=== PATIENT | female | born 1975 | race Caucasian/White ===

== ENCOUNTER 2019-12-09 15:54 | Outpatient (CLI) | payer OTHER, SELFPAY ==
--- NOTE | 2019-12-09 16:11 | MR_ITS ---
WS: [id number] MRI CERVICAL SPINE HISTORY: RADICULOPATHY, CERVICAL REGION COMPARISON: None available. Normal lumbar alignment. Mild disc desiccation throughout the cervical spine. Most significant at C5- 6 and C6-7. Signal within the cervical cord is normal. Visualized posterior fossa is unremarkable. Craniocervical junction, C1 and C2 relationship, odontoid process and soft tissues are normal. C2-C3: Normal. C3-C4: Mild annular disc bulging and osteophytes. Mild encroachment upon the ventral cervical cord bu t no contact. C4-C5: Mild annular disc bulging and osteophytic ridging. No significant stenosis. C5-C6: Moderate diffuse annular disc bulging and osteophyte disease. There is a central disc protrusi on with annular fissure contacting the cord. Mild central stenosis. C6-C7: Diffuse annular disc bulging with a moderate LEFT paracentral disc protrusion. Disc protrusion contacts and displaces the LEFT lateral cervical cord. There is mild central and bilateral foraminal stenosis. C7-T1: Very shallow central disc protrusion. T2-3: Tiny central disc protrusion without cord contact. MR/MR cervical spin wo con* [id number] IMPRESSION: 1. Moderate size central disc protrusion with annular fissure at C5-6. Mild ce ntral stenosis. 2. Moderate LEFT paracentral disc protrusion at C6-7 with cord contact and mil d displacement of the LEFT lateral cervical cord. Mild central and bilateral fo raminal stenosis at the C6-7 level. 3. Remaining levels demonstrate mild spondylosis.
== END 2019-12-09 15:55 | disposition home or self-care (01) ==
PROVIDERS: PCP Nurse Practitioner Family; Visit Provider Physician Assistant
DX: M54.12 Radiculopathy, cervical region (principal); M50.222 Other cervical disc displacement at C5-C6 level; M48.02 Spinal stenosis, cervical region; M47.892 Other spondylosis, cervical region
CPT/HCPCS: 72141

== ENCOUNTER 2020-02-03 14:53 | Outpatient (CLI) | payer OTHER, SELFPAY ==
--- NOTE | 2020-02-03 | MR_ITS ---
WS: [id number] MRI LUMBAR SPINE NONCONTRAST HISTORY: RADICULOPATHY, RIGHT leg pain. COMPARISON: None available. TECHNIQUE: Sagittal and axial multisequence imaging is submitted. Mild increase in thoracic kyphosis. Mild degenerative disc disease and osteophytosis throughout the c ervical and thoracic spine. No cord compression. Focal disc protrusions causing mild central stenosis at C5-6 and C6-7 have been previously described. Normal lumbar alignment with no compression fractures or marrow edema. Mild degenerative disc disease at L4-5 and L5-S1. No marrow edema or acute fracture. Conus terminates normally at Conus tapers and terminates normally at L1. L1-L2: Mild annular disc bulging and facet arthritis. No stenosis. L2-L3: Mild annular disc bulging and facet arthritis. No stenosis. L3-L4: Mild annular disc bulging and facet arthropathy. Small amount of fluid in the facet joints and ligamentum flavum hypertrophy. Vertebral body osteophytes and disc disease causing mild bilateral fo raminal stenosis, LEFT greater than RIGHT. L4-L5: Mild annular disc bulging with a small RIGHT paracentral disc protrusion. There is very slight narrowing of the subarticular recess on the RIGHT with annular fissures in the disc protrusion. Mild bilateral foraminal stenosis. L5-S1: Diffuse annular disc bulging with a broad-based central protrusion in the RIGHT foramen. Disc is abutting the undersurface of the L5 nerve root. Additional disc protrusion extends into the LEFT f oramen and there is a small central disc protrusion. Nerve roots are clumped within the thecal sac. M ild to moderate bilateral foraminal stenosis, RIGHT greater than LEFT. Nabothian cysts. MR/MR lumbar spine wo con* [id number] IMPRESSION: 1. Mild to moderate bilateral foraminal stenosis at L5-S1. Due to combination of facet arthritis with disc protrusions. Small central disc protrusion with bi lateral foraminal broad-based protrusions. RIGHT foraminal disc protrusion abut ting the L5 nerve root. 2. Small RIGHT paracentral disc protrusion at L4-5 with annular fissures. Mild narrowing and encroachment into the RIGHT subarticular recess and mild bilater al foraminal stenosis. 3. Mild bilateral foraminal stenosis at L3-4, LEFT greater than RIGHT.
== END 2020-02-03 14:54 | disposition home or self-care (01) ==
LOC: RADSHAW 14:58
PROVIDERS: PCP Nurse Practitioner Family; Visit Provider Nurse Practitioner Adult Health
DX: M54.17 Radiculopathy, lumbosacral region (principal); M79.604 Pain in right leg; M48.07 Spinal stenosis, lumbosacral region; M51.26 Other intervertebral disc displacement, lumbar region; M48.061 Spinal stenosis, lumbar region without neurogenic claudication
CPT/HCPCS: 72148

== ENCOUNTER 2020-02-07 13:18 | Outpatient (CLI) | payer OTHER, SELFPAY ==
--- NOTE | 2020-02-07 13:39 | XR_ITS ---
WS: [id number] CERVICAL SPINE FLEXION EXTENSION TECHNIQUE: 3 views of the cervical spine: lateral neutral, flexion and extension views. CLINICAL INFORMATION: cervical pain COMPARISON: None. FINDINGS: Straightening of the normal cervical lordosis. Normal C1-C2 articulation. Normal soft tissues. No ins tability on flexion-extension. Posterior elements are normal. No other significant findings. XR/XR cervical spine fl/ex [id number] IMPRESSION: No instability on flexion-extension
== END 2020-02-07 13:19 | disposition home or self-care (01) ==
LOC: RADWPI 13:25
PROVIDERS: PCP Nurse Practitioner Family; Visit Provider Licensed Practical Nurse
DX: M54.2 Cervicalgia (principal)
CPT/HCPCS: 72040

== ENCOUNTER 2020-03-04 13:54 | Outpatient (CLI) | payer OTHER, SELFPAY ==
--- NOTE | 2020-03-04 14:45 | XR_ITS ---
WS: [id number] LATERAL CERVICAL SPINE: 3 view. Lateral radiographs are performed in upright neutral, flexion and extension to the patient's toleranc e. HISTORY: Neck pain COMPARISON: 02/07/2020 Posterior alignment is normal. With flexion and extension no instability. No fractures. XR/XR cervical spine fl/ex [id number] IMPRESSION: Normal cervical alignment with no instability.
--- NOTE | 2020-03-04 15:00 | XR_ITS ---
WS: [id number] LATERAL LUMBAR SPINE: 3 view. Lateral radiographs are performed in upright neutral, flexion and extension to the patient's toleranc e. HISTORY: Low back pain COMPARISON: None available. Slight increase in lumbar lordosis. 3.5 mm retrolisthesis of L5. With flexion and extension there is no instability. Moderate disc space narrowing at L5-S1. No fractures. No lumbar spine instability. XR/XR lumbar spine f/e only [id number] IMPRESSION: 1. Mild increase in the lumbar lordosis. 2. No lumbar spine instability. 3. Moderate degenerative disc disease at L5-S1.
--- NOTE | 2020-03-04 15:45 | CT_ITS ---
WS: [id number] CT CERVICAL SPINE HISTORY: Neck pain TECHNIQUE: Contiguous 2.5 mm axial imaging performed through the entire cervical spine. Sagittal and coronal reformats also performed. All CT scans at [facility] use at least one of these do se optimization techniques: automated exposure control; mA and/or kV adjustment per patient size (inc ludes targeted exams where dose is matched to clinical indication); or iterative reconstruction. DLP: 1514.19 mGycm COMPARISON: MRI C-spine 12/09/2019 Normal posterior alignment. Craniocervical junction is normal. No fractures or bone destruction. Late ral masses of C1 and C2 are intact. C2-C3: Tiny central disc protrusion. C3-C4: Mild osteophytic ridging and shallow central disc protrusion. C4-C5: Mild osteophytic ridging without stenosis. C5-C6: Mild osteophytic ridging. There is a small central disc protrusion. Minimal stenosis and encro achment upon the ventral thecal sac. C6-C7: Mild annular disc bulging with a central LEFT paracentral disc protrusion. Moderate-sized disc protrusion with mild encroachment upon the ventral thecal sac. Mild bilateral foraminal narrowing. C7-T1: Normal. Paravertebral soft tissues are negative. Paraseptal emphysema at the lung apices. CT/CT cervical spin wo con* [id number] IMPRESSION: 1. No severe central stenosis. 2. Moderate LEFT paracentral disc protrusion at C6-7 with mild contact on the ventral cord. 3. Small disc protrusions at C2-3, C3-4 and C5-6 without significant stenosis.
== END 2020-03-04 13:55 | disposition home or self-care (01) ==
LOC: RADWPI 13:57
PROVIDERS: PCP Nurse Practitioner Family; Visit Provider Licensed Practical Nurse
DX: M51.17 Intervertebral disc disorders with radiculopathy, lumbosacral region (principal); M50.00 Cervical disc disorder with myelopathy, unspecified cervical region; M48.02 Spinal stenosis, cervical region; M47.816 Spondylosis without myelopathy or radiculopathy, lumbar region; F17.210 Nicotine dependence, cigarettes, uncomplicated; Z79.891 Long term (current) use of opiate analgesic
CPT/HCPCS: 72040; 72120; 72125; 99204; 99205

== ENCOUNTER → 2020-03-05 14:00 | Outpatient (BNVA) | payer OTHER, SELFPAY | PROVIDERS: PCP Nurse Practitioner Family; Visit Provider Anesthesiology Pain Medicine | DX: M47.816 Spondylosis without myelopathy or radiculopathy, lumbar region (principal); M54.9 Dorsalgia, unspecified; F17.210 Nicotine dependence, cigarettes, uncomplicated; Z79.891 Long term (current) use of opiate analgesic | CPT/HCPCS: 64483; 64484; J2001; J3490 ==

== ENCOUNTER → 2020-03-12 11:28 | Outpatient (BNVA) | payer OTHER, SELFPAY | PROVIDERS: PCP Nurse Practitioner Family; Visit Provider Anesthesiology Pain Medicine | DX: M47.816 Spondylosis without myelopathy or radiculopathy, lumbar region (principal); M54.9 Dorsalgia, unspecified; M54.12 Radiculopathy, cervical region; M50.00 Cervical disc disorder with myelopathy, unspecified cervical region; F17.210 Nicotine dependence, cigarettes, uncomplicated; Z79.891 Long term (current) use of opiate analgesic | CPT/HCPCS: 99214 ==

== ENCOUNTER → 2020-03-25 13:54 | Outpatient (BNVA) | payer OTHER, SELFPAY | PROVIDERS: PCP Nurse Practitioner Family; Visit Provider Anesthesiology Pain Medicine | DX: M47.816 Spondylosis without myelopathy or radiculopathy, lumbar region (principal); M54.9 Dorsalgia, unspecified; F17.210 Nicotine dependence, cigarettes, uncomplicated; Z79.891 Long term (current) use of opiate analgesic | CPT/HCPCS: 64635; 64636; 77003; J1030; J2001 ==

== ENCOUNTER → 2020-04-06 13:16 | Outpatient (BNVA) | payer OTHER, SELFPAY | PROVIDERS: PCP Nurse Practitioner Family; Visit Provider Anesthesiology Pain Medicine | DX: M50.020 Cervical disc disorder with myelopathy, mid-cervical region, unspecified level (principal); M54.12 Radiculopathy, cervical region; M54.9 Dorsalgia, unspecified; F17.210 Nicotine dependence, cigarettes, uncomplicated; Z79.891 Long term (current) use of opiate analgesic | CPT/HCPCS: 62321; J1030 ==

== ENCOUNTER → 2020-04-21 13:06 | Outpatient (BNVA) | payer OTHER, SELFPAY | PROVIDERS: PCP Nurse Practitioner Family; Visit Provider Anesthesiology Pain Medicine | DX: M47.816 Spondylosis without myelopathy or radiculopathy, lumbar region (principal); M54.9 Dorsalgia, unspecified; F17.210 Nicotine dependence, cigarettes, uncomplicated; Z79.891 Long term (current) use of opiate analgesic | CPT/HCPCS: 64635; 64636; J1030 ==

== ENCOUNTER → 2020-05-12 10:35 | Outpatient (BNVA) | payer OTHER, SELFPAY | PROVIDERS: PCP Nurse Practitioner Family; Visit Provider Anesthesiology Pain Medicine | DX: M51.17 Intervertebral disc disorders with radiculopathy, lumbosacral region (principal); M47.816 Spondylosis without myelopathy or radiculopathy, lumbar region; M48.02 Spinal stenosis, cervical region; M54.9 Dorsalgia, unspecified; M50.00 Cervical disc disorder with myelopathy, unspecified cervical region; F17.210 Nicotine dependence, cigarettes, uncomplicated; Z79.891 Long term (current) use of opiate analgesic | CPT/HCPCS: 99213 ==

== ENCOUNTER → 2020-08-10 10:06 | Outpatient (BNVA) | payer OTHER, SELFPAY | PROVIDERS: PCP Nurse Practitioner Family; Visit Provider Anesthesiology Pain Medicine | DX: M51.17 Intervertebral disc disorders with radiculopathy, lumbosacral region (principal); M47.816 Spondylosis without myelopathy or radiculopathy, lumbar region; M48.02 Spinal stenosis, cervical region; M50.00 Cervical disc disorder with myelopathy, unspecified cervical region; M54.9 Dorsalgia, unspecified; Z79.891 Long term (current) use of opiate analgesic | CPT/HCPCS: 99213; 99214 ==

== ENCOUNTER → 2020-10-05 09:10 | Outpatient (BNVA) | payer OTHER, SELFPAY | PROVIDERS: PCP Nurse Practitioner Family; Visit Provider Anesthesiology Pain Medicine | DX: M47.816 Spondylosis without myelopathy or radiculopathy, lumbar region (principal); M51.17 Intervertebral disc disorders with radiculopathy, lumbosacral region; M50.00 Cervical disc disorder with myelopathy, unspecified cervical region; M48.02 Spinal stenosis, cervical region; M54.9 Dorsalgia, unspecified; Z79.891 Long term (current) use of opiate analgesic | CPT/HCPCS: 99213 ==

== ENCOUNTER → 2020-10-07 09:26 | Outpatient (BNVA) | payer OTHER, SELFPAY | PROVIDERS: PCP Nurse Practitioner Family; Visit Provider Orthopaedic Surgery | DX: Z20.828 Contact with and (suspected) exposure to other viral communicable diseases (principal); M47.816 Spondylosis without myelopathy or radiculopathy, lumbar region | CPT/HCPCS: 87635 ==

== ENCOUNTER 2020-10-14 07:57 | Day surgery (SDC) | payer OTHER, SELFPAY ==
[2020-10-13 14:02] VITALS: BMI 32.4
[2020-10-14] VITALS (10 sets, daily range): BP systolic 101–139; BP diastolic 71–87; PULSE 63–89; RESP 16–20; TEMP 36.2–36.9; O2SAT 96–100
--- NOTE | 2020-10-14 | XR_ITS ---
WS: [id number] Lumbar spine, AP and lateral C-arm fluoroscopy views, 10/14/2020 Clinical Data: right L4/L5 MIS decompression Comparison: Lumbar spine, 03/04/2020. Findings: Imaging of the L4-L5 disc space was performed. XR/XR lumbar spine 2-3V* [id number] Impression: Imaging of the L4-L5 disc space.
--- NOTE | 2020-10-14 | SCC_ITS ---
Procedure Done: Right L4/5 Laminectomy with partial facetectomy 7.4 seconds of fluoroscopic guidance, for a cumulative dose of 2.33 mGy, was provided to Dr. King by the radiology department. C-arm images of the lumbar spine were saved for the patient's permanent record. [facility]
[2020-10-14] MEDS: gabapentin 300 mg Capsule PO (08:43)
[2020-10-14] MEDS: sodium chloride 0.9% 1,000 ML 30 ML IV (08:44)
[2020-10-14 08:53] LABS: OR HCG Qualitative Urine Negative (Negative)
--- NOTE | 2020-10-14 10:17 | ANES.PREANE2 ---
Pre-Anesthetic Assessment Pre-Anesthetic Assessment: Height/Weight: Height 1.63 m Weight 85.729 kg Temp Pulse Resp BP Pulse Ox 98.0 F 86 18 101/72 98 10/14/20 08:45 10/14/20 08:45 10/14/20 08:45 10/14/20 08:45 10/14/20 08:45 Preop Diagnosis: lumbar stenosis Proposed Procedure: Operation Date: 10/14/20 09:30 Proposed Procedures p right L4/5 MIS decompression 97309 M51.16(Not Applicable) - Jose Alberto King, DO Was Beta Serafin taken within 24 hours: N/A Last intake: Intake Last Liquid Date 10/13/20 Last Liquid Time 22:00 Last Solid Date 10/13/20 Last Solid Time 18:00 Social: Social History: Tobacco and No alcohol Exam: Pre-Anes Outpt Exam: alert, oriented x 3 and regular rate & rhythm Airway: Submandibular: WNL Cervical ROM: WNL MP: 2 Dentition: Full Pulmonary: Pulmonary: COPD Musc/skel: Musc/skel: Lower Back Pain and OA/DJD Comments: Chronic pain Neuropsych: Neuropsych: Anxiety Anesthetic Plan: ASA status: 3 Anesthesia: General Risk of > 500 ml blood loss (7ml/kg in children): Yes, adequate IV access and fluids planned Meds/Allergies Current Medications: Current Medications Generic Name Dose Route Start Last Admin Trade Name Freq PRN Reason Stop Dose Admin Sodium Chloride 1,000 mls @ 30 ml s/hr 10/14/20 08:15 10/14/20 08:44 Sodium Chloride 0.9% IV 10/15/20 08:14 30 mls/hr .Q24H SHELLY Administration PFSH Anesthesia PFSH: Medical History Cervical disc disease with myelopathy Cervical disc disorder with myelopathy of mid-cervical region 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 Pain management contract signed Shoulder pain Stenosis of cervical spine with myelopathy Surgical History History of delivery History of cholecystectomy History of foot surgery bilateral surgery Family History Father Cancer Mother Cancer Clotting disorder Social History Smoking and tobacco status: current every day smoker Alcohol intake: current Household members: spouse Marital status: Current occupational status: unemployed History of recent travel: No Female Reproductive History: Date of last menstrual period: 10/05/20 Data Anesthesia Other Labs: Laboratory Results - last 48 hr 10/14/20 08:53 Urine HCG, Qual Negative Cardiac Studies: No Data to Display
--- NOTE | 2020-10-14 11:12 | W.PM.OPSUD ---
Surgery/Procedure H&P Update DATE OF PROCEDURE: October 14, 2020 DATE H&P PERFORMED: 10/14/20 PREOP DIAGNOSIS: lumbar stenosis PLANNED PROCEDURE: Operation Date: 10/14/20 09:30 Proposed Procedures p right L4/5 MIS decompression 89940 M51.16(Not Applicable) - Jose Alberto King DO
[2020-10-14] MEDS: clindamycin 900 MG/50 ML PREMIX 100 MG IV (12:05)
--- NOTE | 2020-10-14 13:15 | PM.OP ---
Operative Report Date of procedure: October 14, 2020 Pre-op Diagnosis: lumbar stenosis Post-op diagnosis: same Procedure Done: Right L4/5 Laminectomy with partial facetectomy Surgeon: Jose Alberto King Anesthesia: General Condition: stable Disposition: PACU Procedure: Right L4/5 Laminectomy with partial facetectomy Patient is brought to the operative suite placed in the prone position after undergoing anesthesia all areas impingement well-padded. Patient was prepped and draped in normal sterile fashion. Skin was was made of the L4-5 level. This confirmed under C-arm guidance. Dilators were passed to the retractors inserted and docked onto the L4 lamina. As well as the L4-5 facet. Bovie was used to clear the soft tissues off the lamina and L4-5 facet. High-speed bur was then used to take down the bone of the lamina. And the medial aspect of the facet joint. Kerrison rongeur was then used to take down the remaining bone up to where the ligamentum flavum inserts onto the undersurface of the L4 lamina. The medial aspect of the facet joint was taken down with the Kerrison as well. Ligamentum flavum was taken down from L4-L5. The ligament was significant thickened. Once the ligament flavum was taken down and the dura was exposed dura had good pulses good repair. The L5 nerve root was identified and traced around the L5 pedicle felt to be adequately decompressed. The L4-5 disc was observed did not appear to be pushing on the L5 nerve. And then the L4 nerve was traced out the L4-5 foramen felt to be adequately decompressed. Wounds were then irrigated and closed with Vicryl in layered fashion along with Monocryl and skin glue. Sterile dressings applied patient was transferred to the PACU in stable condition.
[2020-10-14] MEDS: HYDROcodone-acetaminophen 5-325 mg Tablet 1 TAB PO (14:18)
== END 2020-10-14 14:47 | disposition home or self-care (01) ==
PROVIDERS: Anesthesiology; PCP Nurse Practitioner Family; Visit Provider Orthopaedic Surgery
PROC: (CPT 63005; principal; 2020-10-14 09:30)
DX: M48.061 Spinal stenosis, lumbar region without neurogenic claudication (principal); J44.9 Chronic obstructive pulmonary disease, unspecified; M19.90 Unspecified osteoarthritis, unspecified site; F41.9 Anxiety disorder, unspecified; G89.29 Other chronic pain; F17.210 Nicotine dependence, cigarettes, uncomplicated
CPT/HCPCS: 63047; 12345; 72100; 76000; 81025; 84703; J1100; J2405; J2704; J3010; J3490; J7030

== ENCOUNTER → 2020-10-19 14:00 | Outpatient (BNVA) | payer OTHER, SELFPAY | PROVIDERS: PCP Nurse Practitioner Family; Visit Provider Orthopaedic Surgery | DX: M48.02 Spinal stenosis, cervical region (principal); M50.020 Cervical disc disorder with myelopathy, mid-cervical region, unspecified level | CPT/HCPCS: 87635 ==

== ENCOUNTER 2020-10-23 10:28 | Day surgery (SDC) | payer OTHER, SELFPAY ==
[2020-10-23] VITALS (8 sets, daily range): BP systolic 121–154; BP diastolic 71–100; PULSE 73–82; RESP 16–22; TEMP 36.1–36.3; O2SAT 94–100; BMI 32.5
--- NOTE | 2020-10-23 | XR_ITS ---
WS: [id number] Cervical spine, 2 C-arm fluoroscopy views, 10/23/2020 Clinical Data: C5-C7 ACDF Comparison: Cervical spine, 03/04/2020. Findings: There is an anterior cervical disc fusion from C5 through C7. XR/XR cervical spine 3V* [id number] Impression: Anterior cervical disc fusion.
--- NOTE | 2020-10-23 | SCC_ITS ---
Procedure Done: 1. Anterior diskectomy C5/6 2. Anterior discectomy C6/7 3. Insertion of cage C5/6 4. Insertion of Cage C6/7 5. Instrumentation with anterior plate from C5-C7 6. Use of allograft 33.3 seconds of fluoroscopic guidance, for a cumulative dose of 2.83 mGy, was provided to Dr. King by the radiology department. C-arm images of the cervical spine were saved for the patient's permanent record. [facility]
[2020-10-23 10:51] LABS: OR HCG Qualitative Urine Negative (Negative)
[2020-10-23] MEDS: gabapentin 300 mg Capsule PO (11:15)
[2020-10-23] MEDS: sodium chloride 0.9% 1,000 ML 30 ML IV (11:21)
--- NOTE | 2020-10-23 11:36 | ANES.PREANE2 ---
Pre-Anesthetic Assessment Pre-Anesthetic Assessment: Height/Weight: Height 1.63 m Weight 86.183 kg Preop Diagnosis: Cervical stenosis Proposed Procedure: Operation Date: 10/23/20 12:00 Proposed Procedures p C5-7 Anterior Cervical Discectomy & Fusion [id number] 61509 M48.02(Not Applicable) - Jose Alberto King DO Familial anesthetic complications: None Was Beta Serafin taken within 24 hours: N/A Last intake: Intake Last Liquid Date 10/23/20 Last Liquid Time 05:30 Last Solid Date 10/22/20 Last Solid Time 20:30 Social: Social History: Tobacco and No alcohol Exam: Pre-Anes Outpt Exam: alert, oriented x 3, clear to auscultation bilaterally and regular rate & rhythm Airway: Cervical ROM: WNL MP: 2 Dentition: Full Musc/skel: Musc/skel: Lower Back Pain Anesthetic Plan: ASA status: 1 Anesthesia: General Risk of > 500 ml blood loss (7ml/kg in children): No Meds/Allergies Current Medications: Current Medications Generic Name Dose Route Start Last Admin Trade Name Freq PRN Reason Stop Dose Admin Sodium Chloride 1,000 mls @ 30 ml s/hr 10/23/20 10:45 10/23/20 11:21 Sodium Chloride 0.9% IV 10/24/20 10:44 30 mls/hr .Q24H SHELLY Administration PFSH Anesthesia PFSH: Medical History Cervical disc disease with myelopathy Cervical disc disorder with myelopathy of mid-cervical region 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 Pain management contract signed Shoulder pain Stenosis of cervical spine with myelopathy Surgical History History of delivery History of cholecystectomy History of foot surgery bilateral surgery Family History Father Cancer Mother Cancer Clotting disorder Social History Smoking and tobacco status: current every day smoker Alcohol intake: current Household members: spouse Marital status: Current occupational status: unemployed History of recent travel: No Female Reproductive History: Date of last menstrual period: 10/05/20 Data Anesthesia Other Labs: Laboratory Results - last 48 hr 10/23/20 10:47 Urine HCG, Qual Negative Cardiac Studies: No Data to Display
--- NOTE | 2020-10-23 12:01 | W.PM.OPSUD ---
Surgery/Procedure H&P Update DATE OF PROCEDURE: October 23, 2020 DATE H&P PERFORMED: 09/15/20 H&P UPDATE INFORMATION: I have reviewed H&P completed within last 30 days PREOP DIAGNOSIS: Cervical stenosis PLANNED PROCEDURE: Operation Date: 10/23/20 12:00 Proposed Procedures p C5-7 Anterior Cervical Discectomy & Fusion 65091 [id number] [id number] 54150 M48.02(Not Applicable) - Jose Alberto King DO
--- NOTE | 2020-10-23 12:02 | PM.HP ---
Providers/Chief Complaint Primary Care Provider: EZIO West Chief Complaint: c5-7 anterior cervical discectomy and fusion History of Present Illness ew 45 year old female here for evaluation of low back pain, she states this has been ongoing for years. She states she does experience weakness to her right lower extremity and her right knee will occasionally give out. Onset: years Duration: year Characteristics: ache, sharp Severity: 5/10 Location: lumbar, base of neck Radiating symptoms: pain in right shoulder, lower back and numbness/tingling to right lower extremity Aggravating factors: walking,lifting,laying,sitting Alleviating factors: none Neuro deficits: denies, incontinence of bowel/bladder, saddle anesthesia. Prior tx: injections- lasting a week or two, Physical therapy made symptoms worse. Review of Systems Narrative: General ROS: negative for weight changes, fever ENT ROS: negative for nasal congestion, drainage or bleeding, sore throat, dysphagia or ear pain Eyes: PERRL Hematological and Lymphatic ROS: negative for swollen glands or abnormal bleeding Endocrine ROS: negative for polyuria/polydpsia or new changes in weight Respiratory ROS: negative for cough, shortness of breath, or wheezing Cardiovascular ROS: negative for chest pain or dyspnea on exertion Gastrointestinal ROS: negative for reflux, abdominal pain, change in bowel habits, or black or bloody stools Musculoskeletal ROS: negative for back pain, neck pain, or joint pain or swelling except for current problem Neurological ROS: negative for TIA or stoke symptoms Skin: no rashes Medications/Allergies Home Medications Medication Instructions Recorded Confirmed Last Taken Type clonazepam 2 mg tablet 2 mg PO DAILY PRN 02/05/20 10/23/20 10/23/20 History pregabalin 150 mg capsule 150 mg PO BID 02/05/20 10/23/20 10/22/20 History ropinirole 2 mg tablet 2 mg PO DAILY 02/05/20 10/23/20 10/22/20 History trazodone 100 mg tablet 100 mg PO DAILY 02/05/20 10/23/20 10/22/20 History acetaminophen 500 mg tablet 500 mg PO Q6H PRN 03/04/20 10/23/20 10/22/20 History naproxen sodium 220 mg capsule 220 mg PO BID PRN 03/04/20 10/23/20 10/22/20 History loratadine 10 mg tablet 10 mg PO DAILY 08/10/20 10/23/20 10/22/20 History Bone Growth Stimulator E0748 #1 ea 08/14/20 10/05/20 Unknown Rx tizanidine 4 mg tablet 4 mg PO BID PRN #60 tab 10/05/20 10/23/20 10/22/20 Rx tramadol 50 mg tablet 50 mg PO BID PRN #60 tab MDD 2 10/05/20 10/23/20 10/22/20 Rx hydrocodone-acetaminophen 1 - 2 tab PO .Q4-6H #40 tab 10/14/20 10/23/20 10/23/20 05:30 Rx Allergies Allergy/AdvReac Type Severity Reaction Status Date / Time adhesive Allergy rash Verified 10/23/20 10:54 amoxicillin Allergy hives Verified 10/23/20 10:54 Penicillins Allergy hives Verified 10/23/20 10:54 Sulfa (Sulfonamide Allergy hives Verified 10/23/20 10:54 Antibiotics) PFSH Acute PFSH: Medical History Cervical disc disease with myelopathy Cervical disc disorder with myelopathy of mid-cervical region 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 Pain management contract signed Shoulder pain Stenosis of cervical spine with myelopathy Surgical History History of delivery History of cholecystectomy History of foot surgery bilateral surgery Family History Father Cancer Mother Cancer Clotting disorder Social History Smoking and tobacco status: current every day smoker Alcohol intake: current Household members: spouse Marital status: Current occupational status: unemployed History of recent travel: No Female Reproductive History: Date of last menstrual period: 10/05/20 Vitals/I&O/Wt Weight last 48 hrs Weight 190 lb Weight 190 lb Physical Exam Narrative: EXAM NARRATIVE: CONSTITUTIONAL: The patient is a normal appearing [] in no apparent distress. GENERAL: Patient in no acute distress. CARDIAC: Regular rate and rhythm. CHEST: Normal inspiratory effort, normal respiratory rate. ABDOMEN: Soft and nontender. SKIN: Clear, warm and intact. NEURO?PSYCH: The patient is alert and oriented to person, place and time. Sensorv /SILT Motor StrengthShoulder abduction C5 5/5Wrist extension C6 5/5Elbow extension C7 5/5Hand Barrel Raiser Helper C8 5/5Finger abduction T15/5 Radial/ Ulnar/ Median n intact LowerSensory (SILT)Motor StrengthHin flexion L2/3Ant/inner thigh 5/5Hip adduction L2/3 5/5Knee extension L4 Lat thigh, 5/5Toe dorsiflexion L5 5/5Ankle dorsiflexion L5/ Z93Asbtqev flexion S1 5/5 DTRBleeps 2+Triceps 2+Brachioradialis 2+Patellar 2+Achilles 2+ MUSCULOSKELETAL: [] UPPEREXTREMITIES: The patient had full active ROM in fingers, wrist, elbow, and shoulder. The patient demonstrated ability to fully flex/extend/abduct/adduct fingers, make ok sign, cross 2nd/3rd digits, extend 1st digit fully.. Radial pulse 2+, CR<2 seconds. LOWER EXTREMITIES: Pt has full, active ROM of toes, ankle, knee, and hip. Dorsalis pedis/posterior tibialis pulses 2+, CR<2 seconds. SPINE: Skin warm, dry, intact. 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
[2020-10-23] MEDS: clindamycin 900 MG/50 ML PREMIX 100 MG IV (12:26)
[2020-10-23] MEDS: thrombin 5,000 unit SDV 5000 UNIT (13:42)
--- NOTE | 2020-10-23 15:32 | PM.OP ---
Operative Report Date of procedure: October 23, 2020 Pre-op Diagnosis: Cervical stenosis Post-op diagnosis: same Procedure Done: 1. Anterior diskectomy C5/6 2. Anterior discectomy C6/7 3. Insertion of cage C5/6 4. Insertion of Cage C6/7 5. Instrumentation with anterior plate from C5-C7 6. Use of allograft Procedure: 1. Anterior diskectomy C5/6 2. Anterior discectomy C6/7 3. Insertion of cage C5/6 4. Insertion of Cage C6/7 5. Instrumentation with anterior plate from C5-C7 6. Use of allograft Patient was brought the operative suite after undergoing anesthesia was placed in the supine position. Neuro monitoring was connected. Skin incision made over the C5/6C6/7 level after prepping draping normal sterile fashion. Incision made platysmas identified split and blunt dissection was made down to the anterior cervical spine. The anterior longitudinal ligament was identified retractors placed. A spinal needle was placed to identify the C5-6 space was confirmed with C-arm guidance. Retractors then replaced and then using Bovie the soft tissues were cleared around the C5-6 and C6-7 disc basis. Happy Jack pins placed at C5 and C6 the C5-6 to space was distracted. High-speed bur was used to take down the spurs anteriorly as well as posteriorly. The disc was then removed using curettes and Kerrison rongeur. Posterior longitudinal ligament is taken down and the foramen were opened bilaterally using curettes rongeur taken down the uncinate process. The C6 nerve was traced out the foramen with a curette. Bilaterally. And thenwas placed after measuring with up to C6. Then the cage was placed packed with allograft. Once the cage was placed attention was then brought to the C6-7 level. The C5 Happy Jack pin was removed. And a Happy Jack pin was placed in the C7 disc base. Retractors were placed discectomy was performed at C6-7 using Kerrison rongeur high-speed bur and curettes. Posterior longitudinal ligament was taken down. The foramen were opened bilaterally. Using Kerrison the C7 nerves were traced out the foramen. And then a size 6 cage was placed packed with osteobone graft allograft. A C5-C7 anterior plate was placed 2 screws placed at C5-C6 and C7. Size 14 screws were placed at each level. C-arm was brought in to ensure that the hardware was in preposition on both AP and lateral views. Wounds were irrigated and the platysmas closed with 2-0 Vicryl skin was closed with 2-0 Vicryl and Monocryl suture suture. Sterile dressings were applied patient was placed in a c-collar and transferred to the PACU in stable condition.
--- NOTE | 2020-10-23 16:30 | ANE.PACU2 ---
Inpatient post-anesthesia follow up: Airway intact: Yes Vital signs: Temperature 97 F Pulse Rate 78 Respiratory Rate 16 Blood Pressure 149/99 Pulse Oximetry 95 Oxygen Delivery Me thod Room Air Oxygen Flow Rate 8 Fraction of Inspir ed Oxygen Hydration adequate: Yes Nausea and vomiting: No Pain level: 5 Mental status: Baseline
--- NOTE | 2020-10-23 16:59 | PC.NURSE ---
pt requesting to go home
== END 2020-10-23 16:00 | disposition home or self-care (01) ==
PROVIDERS: Anesthesiology; PCP Nurse Practitioner Family; Visit Provider Orthopaedic Surgery
PROC: 0RB30ZZ Excision of Cervical Vertebral Disc, Open Approach (ICD-10-PCS; CPT 22551; principal; 2020-10-23 11:30)
DX: M48.02 Spinal stenosis, cervical region (principal); Z79.891 Long term (current) use of opiate analgesic; F17.210 Nicotine dependence, cigarettes, uncomplicated
CPT/HCPCS: 20930; 22551; 22552; 22845; 22853 ×2; 12345; 72040; 76000; 81025; 84703; 97760; C1713; C9359; J0330; J1100; J2405; J2704; J3010; J3490; J7030; L0174

== ENCOUNTER 2020-11-08 11:40 | Emergency (ER) | payer OTHER, SELFPAY ==
[2020-11-08 11:56] VITALS: BP 104/71; PULSE 88; RESP 14; TEMP 36.9; O2SAT 97; BMI 30.9
--- NOTE | 2020-11-08 12:12 | ECG_ITS ---
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
--- NOTE | 2020-11-08 12:14 | W.ED.CHESTPA ---
HPI - Chest Pain General: Chief Complaint: Chest Pain Stated Complaint: SOB/Tightness Time Seen by Provider: 11/08/20 12:05 Source: patient Mode of arrival: ambulatory Limitations: no limitations History of Present Illness: HPI narrative: Patient is a 45-year-old female patient who presents to the emergency department with chest pain of 1 weeks duration. She states that she initially thought it was indigestion but later the pain localized to her left chest. Pain also radiates to her back between her shoulder blades. She denies any dizziness, headache, nausea, diaphoresis. She endorses shortness of breath and states the shortness of breath has been worsening. Of note is she had 2 surgeries in the last 2 weeks one on her neck and one on her back. No prior history of DVT. No family history of DVT or cardiac history. MD complaint: chest pain Onset (ago): week(s) (1) Timing of current episode: constant Prior episodes: No Onset: during rest Pain location: left chest Pain radiation: back Pain scale (0-10): 7 Quality: heaviness Relieving factors: nothing Exacerbating factors: nothing Context: recent surgery Associated symptoms: Deny abdominal pain, diaphoresis, dyspnea, fever(s), leg edema, nausea, palpitations, sense of impending doom, syncope or vomiting Treatment prior to arrival: other (prescritpion pain medication) Review of Systems General: Reports: 10 or more systems reviewed and unremarkable except in HPI and below Const: Denies: fever(s) or diaphoresis Eyes: Denies: change in vision or blurry vision ENMT: Denies: throat pain, enlarged tonsils, odynophagia, hoarseness, mouth pain or swelling of lips/tongue Card: Denies: palpitations or syncope Resp: Denies: dyspnea GI: Denies: abdominal pain, nausea or vomiting : Denies: flank pain, difficulty voiding, dysuria, urinary frequency, urinary urgency or urinary hesitancy Musc: Denies: neck pain, back pain or extremity swelling Skin/Breast: Denies: rash, pruritus or erythema Neuro: Denies: headache(s), numbness in extremities or weakness in extremities Endo: Denies: polyuria, polydipsia or tired all the time [facility] ED PFSH: Medical History (Updated 11/08/20 @ 14:36 by Brea Modi MD, [facility] – [place]) Cervical disc disease with myelopathy Cervical disc disorder with myelopathy of mid-cervical region 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 Pain management contract signed Shoulder pain Stenosis of cervical spine with myelopathy Surgical History (Reviewed 11/08/20 @ 12:18 by Brea Modi MD, [facility] – [place]) History of delivery History of cholecystectomy History of foot surgery bilateral surgery Family History Father Cancer Mother Cancer Clotting disorder Social History Smoking and tobacco status: current every day smoker Alcohol intake: current Household members: spouse Marital status: Current occupational status: unemployed History of recent travel: No Female Reproductive History: Date of last menstrual period: 10/05/20 Physical Exam Const: COMMON NORMALS: no acute distress, average body habitus, patient oriented x3, no limitations, healthy appearing, alert and well nourished HENMT: COMMON NORMALS: normocephalic, atraumatic and moist oral mucous membranes HEAD & SCALP: normocephalic and atraumatic Neck/C-Spine: COMMON NORMALS: no meningeal signs and no JVD Chest: COMMONS NORMALS: normal inspection of the chest and normal palpation of entire chest wall Resp: COMMON NORMALS: normal respiratory effort, No retractions, No use of accessory muscles, clear to auscultation bilaterally and percussion normal AUSCULTATION: clear to auscultation bilaterally PERCUSSION: percussion normal Cardio: COMMON NORMALS: no JVD, regular rate, regular rhythm, S1 normal heart sound present, S2 normal heart sound present, No gallops present (Cardio), No clicks present (Cardio), No murmurs present (Cardio), No rub (Cardio) and Peripheral pulses 2+ throughout RATE: regular rate RHYTHM: regular rhythm HEART SOUNDS: S1 normal heart sound present and S2 normal heart sound present PERIPHERAL PULSES: Peripheral pulses 2+ throughout GI: COMMON NORMALS: Normal to inspection, nondistended, normoactive bowel sounds present, Soft to palpation, non-tender, No hepatosplenomegaly present, no masses and no bruits PALPATION: Yes Soft to palpation and Yes No hepatosplenomegaly present Extremity: COMMON NORMALS: normal to inspection, full ROM, capillary refill normal, no calf tenderness and no pedal edema Neuro: COMMON NORMALS: patient oriented x3 SENSORIUM/ORIENTATION: Yes alert MENINGEAL SIGNS: Yes no meningeal signs Skin: COMMON NORMALS: no rashes or lesions noted, no wounds, turgor normal, no jaundice, no petechiae and no mottling GENERAL SKIN EXAM: no rashes or lesions noted and turgor normal Course Reevaluation(s): Reevaluation #1: Discussed her lab and imaging findings with her. High-sensitivity troponin was negative, D-dimer was mildly elevated and so a chest CTA was done. CT was negative for PE or other acute findings. Pain was relieved with nitroglycerin so I will discharge her home with a prescription for nitroglycerin to be used as needed. Heart score is 1 so she is low risk, will order an outpatient stress test for her. She voiced understanding and she is in agreement with the plan. Time: 14:33 Vital Signs: Vital signs: Vital Signs Temperature 98.7 F 11/08/20 14:42 Pulse Rate 97 11/08/20 14:42 Respiratory Rate 18 11/08/20 14:42 Blood Pressure 117/79 11/08/20 14:42 Pulse Oximetry 98 11/08/20 14:42 MDM - Chest Pain MDM Narrative: Medical decision making narrative: 45-year-old female patient who presents to the emergency department with chest pain of a weeks duration. ED evaluation was unremarkable including negative high-sensitivity troponin and negative chest CTA. She did obtain relief following nitroglycerin administration so she will be discharged home with a prescription for nitroglycerin. She will be scheduled for an outpatient stress test. Medical Records: Attestation: I reviewed the patient's medical records. Lab Data: Attestation: I reviewed the patient's lab results. Labs: Lab Results 11/08/20 11/08/20 11/08/20 Range/Units 12:16 12:16 12:16 WBC 10.7 H (4.0-10.0) 10^3/ uL RBC 4.57 (4.1-5.3) 10^6/u L Hgb 14.4 (11.5-15.3) g/dL Hct 42.7 (37.0-47.0) % MCV 93.4 (81-99) fL MCH 31.5 (28.0-34.0) pg MCHC 33.7 (30.0-36.0) g/dL RDW 12.8 (12.1-15.1) % Plt Count 341 (130-400) 10^3/c mm MPV 8.8 (7.4-10.4) fL Neut % (Auto) 72.0 % Lymph % (Auto) 18.4 % [place] % (Auto) 6.6 % Eos % (Auto) 1.9 % Baso % (Auto) 0.7 % Neut # (Auto) 7.74 H (1.8-7.7) 10^3/u L Lymph # (Auto) 2.0 (0.8-4.8) 10^3/u L [place] # (Auto) 0.7 (0.2-0.9) 10^3/u L Eos # (Auto) 0.2 (0.0-0.8) 10^3/u L Baso # (Auto) 0.1 (0.0-0.1) 10^3/u L Nucleated RBC % (a uto) 0 % Nucleated RBCs # 0.0 /100WBC PT (12.1-14.9) SECO NDS INR (0.8-1.2) D-Dimer (0-0.59) ug/mIFE U Sodium 138 (136-145) mmol/L Potassium 4.5 (3.5-5.1) mmol/L Chloride 104 (98-107) mmol/L Carbon Dioxide 23 (22-29) mmol/L Anion Gap 15.5 (5-19) BUN 15 (6-20) mg/dL Creatinine 0.6 (0.5-0.9) mg/dL GFR Calculation 108.6 (90-130) mL/min Glucose 84 (65-115) mg/dL Calculated Osmolal ity 286 (285-295) mOsm/k g Calcium 9.5 (8.5-10.5) mg/dL Total Bilirubin 0.3 (0.15-1.2) mg/dL AST 17 (0-32) U/L ALT 21 (0-33) U/L Alkaline Phosphata se 108 H (35-105) IU/L Troponin T Baselin e 6 (0-10) ng/L Total Protein 6.9 (6.6-8.7) g/dL Albumin 4.5 (3.5-5.2) g/dL Globulin 2.4 (1.3-4.6) g/dL Lipase 18 (13-60) U/L 11/08/20 Range/Units 12:48 WBC (4.0-10.0) 10^3/ uL RBC (4.1-5.3) 10^6/u L Hgb (11.5-15.3) g/dL Hct (37.0-47.0) % MCV (81-99) fL MCH (28.0-34.0) pg MCHC (30.0-36.0) g/dL RDW (12.1-15.1) % Plt Count (130-400) 10^3/c mm MPV (7.4-10.4) fL Neut % (Auto) % Lymph % (Auto) % [place] % (Auto) % Eos % (Auto) % Baso % (Auto) % Neut # (Auto) (1.8-7.7) 10^3/u L Lymph # (Auto) (0.8-4.8) 10^3/u L [place] # (Auto) (0.2-0.9) 10^3/u L Eos # (Auto) (0.0-0.8) 10^3/u L Baso # (Auto) (0.0-0.1) 10^3/u L Nucleated RBC % (a uto) % Nucleated RBCs # /100WBC PT 13.00 (12.1-14.9) SECO NDS INR 0.95 (0.8-1.2) D-Dimer 0.81 H (0-0.59) ug/mIFE U Sodium (136-145) mmol/L Potassium (3.5-5.1) mmol/L Chloride (98-107) mmol/L Carbon Dioxide (22-29) mmol/L Anion Gap (5-19) BUN (6-20) mg/dL Creatinine (0.5-0.9) mg/dL GFR Calculation (90-130) mL/min Glucose (65-115) mg/dL Calculated Osmolal ity (285-295) mOsm/k g Calcium (8.5-10.5) mg/dL Total Bilirubin (0.15-1.2) mg/dL AST (0-32) U/L ALT (0-33) U/L Alkaline Phosphata se (35-105) IU/L Troponin T Baselin e (0-10) ng/L Total Protein (6.6-8.7) g/dL Albumin (3.5-5.2) g/dL Globulin (1.3-4.6) g/dL Lipase (13-60) U/L Imaging Data^: CTA Chest: Attestation: I personally reviewed and interpreted this imaging study as follows: Radiologist's impression: [address] [address] [address] Scan Report Signed Patient: Daryl Corado #: [id number] : 1975Acct#:[id number] Age/Sex: 45 / FADM Date: 11/08/20 Loc: [facility]/Bed: Attending Dr: Ordering Provider/Ordering MD: Brea Modi MD, [facility] – [place] Date of Service: 11/08/20 Procedure(s): CT angio chest PE protcl [id number] Accession Number(s): [id number] Report Number: [id number] PROCEDURE INFORMATION: Exam: CT Angiography Chest With Contrast Exam date and time: 11/08/2020 1:45 PM Age: 45 years old Clinical indication: Chest pain; On breathing; Prior surgery; Surgery date: <1 month; Surgery type: Acdf, l-sp; Patient HX: C/O cp w SOB; Additional info: Cp, SOB, recent surgery TECHNIQUE: Imaging protocol: Computed tomographic angiography of the chest with contrast. 3D rendering (Not supervised by radiologist): MIP and/or 3D reconstructed images were created by the technologist. Radiation optimization: All CT scans at this facility use at least one of these dose optimization techniques: automated exposure control; mA and/or kV adjustment per patient size (includes targeted exams where dose is matched to clinical indication); or iterative reconstruction. Contrast material: OMNI 350; Contrast volume: 65 ml; Contrast route: INTRAVENOUS (IV); COMPARISON: No relevant prior studies available. RADIATION DOSE METRICS: Total DLP (mGy-cm): 482.67 FINDINGS: Pulmonary arteries: Normal. No pulmonary emboli. Aorta: Unremarkable. No aortic aneurysm. No aortic dissection. Lungs: Unremarkable. No consolidation. No masses. Pleural spaces: Unremarkable. No pneumothorax. No pleural effusion. Heart: Unremarkable. No cardiomegaly. No pericardial effusion. Lymph nodes: Unremarkable. No enlarged lymph nodes. Bones/joints: Unremarkable. No acute fracture. Soft tissues: Unremarkable. CT/CT angio chest PE protcl [id number] IMPRESSION: No acute findings. Radiation Dose CTDIVOL = (mGy): DLP = 482.67 (mGy-cm) Dictated By:Jacquelin Diaz MD Signed By:Jacquelin Diazigned Date/Time:11/08/201421 DD/ 19 EKG Data^: EKG 1: Attestation: I personally reviewed and interpreted this EKG as follows: EKG interpretation date: 11/08/20 EKG interpretation time: 11:55 Prior EKG tracings: not available for review Interpretation: Normal sinus rhythm. Heart rate 79 bpm. Normal axis. No ST changes. Discharge Plan Discharge Patient Disposition: Home Clinical Impression: Angina pectoris Condition: Stable Prescriptions: New nitroglycerin 0.3 mg tablet, sublingual 0.3 mg sublingual Q5M PRN (Reason: chest pain) Qty: 30 RF: 0 Continued clonazepam 2 mg tablet 2 mg PO DAILY PRN (Reason: Anxiety) RF: 0 pregabalin [Lyrica] 150 mg capsule 150 mg PO BID@ RF: 0 ropinirole 2 mg tablet 2 mg PO DAILY@1999 RF: 0 trazodone 100 mg tablet 100 mg PO DAILY@1999 RF: 0 loratadine [Allergy Relief (loratadine)] 10 mg tablet 10 mg PO DAILY@1999 RF: 0 tramadol 50 mg tablet 50 mg PO BID MDD 2 PRN (Reason: pain) Qty: 60 RF: 0 (DME) Bone Growth Stimulator E0748 See Rx Instructions .Route .MEDSUPPLY Qty: 1 RF: 0 tizanidine 4 mg tablet 4 mg PO BID PRN (Reason: muscle spasticity) Qty: 60 RF: 0 hydrocodone-acetaminophen 5-325 mg tablet 1 - 2 tab PO .Q4-6H PRN (Reason: pain) 7 Days Qty: 40 RF: 0 calcium carbonate 500 mg calcium (1,250 mg) Tablet,Chewable 500 mg PO TID PRN (Reason: Heartburn) RF: 0 Discharge Orders: Discharge ED (Routine); Ordered 11/08/20 Ordered By: Brea Modi Referrals: Chrissie Eckert FNP [Primary Care Provider] - 1-3 days Discharge Diet: Usual diet Discharge Activity: Increase activity as tolerated Patient Instructions: Angina (ED) Activity Restrictions/Additional Instructions: Return for any new or worsening symptoms. Follow-up with your primary care provider within 3 days. You will be contacted to schedule an outpatient stress test for further evaluation of your heart. Take the nitroglycerin as needed for chest pain. 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
[2020-11-08] MEDS: nitroglycerin 1 gm/inch oint Pkt 1 INCH TOPICAL (12:19)
[2020-11-08 12:22] LABS: Basophils # 0.1 10^3/uL (0.0-0.1); Basophils % 0.7 %; Eosinophils # 0.2 10^3/uL (0.0-0.8); Eosinophils % 1.9 %; Hematocrit 42.7 % (37.0-47.0); Hemoglobin 14.4 g/dL (11.5-15.3); Lymphocytes % 18.4 %; Mean Corpuscular HGB Conc 33.7 g/dL (30.0-36.0); Mean Corpuscular Hemoglobin 31.5 pg (28.0-34.0); Mean Corpuscular Volume 93.4 fL (81-99); Mean Platelet Volume 8.8 fL (7.4-10.4); Monocytes # 0.7 10^3/uL (0.2-0.9); Monocytes % 6.6 %; Neutrophils # 7.74 10^3/uL (1.8-7.7); Nucleated Red Blood Cells % 0 %; Platelet Count 341 10^3/cmm (130-400); Red Blood Count 4.57 10^6/uL (4.1-5.3); Red Cell Distribution Width 12.8 % (12.1-15.1); White Blood Count 10.7 10^3/uL (4.0-10.0)
[2020-11-08 12:51] LABS: Alanine Aminotransferase 21 U/L (0-33); Albumin Level 4.5 g/dL (3.5-5.2); Alkaline Phosphatase 108 IU/L (35-105); Anion Gap 15.5 (5-19); Aspartate Amino Transferase 17 U/L (0-32); Blood Urea Nitrogen 15 mg/dL (6-20); Calcium 9.5 mg/dL (8.5-10.5); Carbon Dioxide 23 mmol/L (22-29); Chloride 104 mmol/L (98-107); Globulin 2.4 g/dL (1.3-4.6); Glomerular Filtration Rate 108.6 mL/min (90-130); Glucose 84 mg/dL (65-115); Lipase 18 U/L (13-60); Osmolality Calculated 286 mOsm/kg (285-295); Potassium 4.5 mmol/L (3.5-5.1); Sodium 138 mmol/L (136-145); Total Bilirubin 0.3 mg/dL (0.15-1.2); Total Protein 6.9 g/dL (6.6-8.7)
[2020-11-08 12:53] LABS: Troponin(5th) Baseline 6 ng/L (0-10)
[2020-11-08 13:06] LABS: INR 0.95 (0.8-1.2)
[2020-11-08 13:08] LABS: D Dimer 0.81 ug/mIFEU (0-0.59)
--- NOTE | 2020-11-08 13:15 | CTR_ITS ---
PROCEDURE INFORMATION: Exam: CT Angiography Chest With Contrast Exam date and time: 11/08/2020 1:45 PM Age: 45 years old Clinical indication: Chest pain; On breathing; Prior surgery; Surgery date: <1 month; Surgery type: Acdf, l-sp; Patient HX: C/O cp w SOB; Additional info: Cp, SOB, recent surgery TECHNIQUE: Imaging protocol: Computed tomographic angiography of the chest with contrast. 3D rendering (Not supervised by radiologist): MIP and/or 3D reconstructed images were created by the technologist. Radiation optimization: All CT scans at this facility use at least one of these dose optimization techniques: automated exposure control; mA and/or kV adjustment per patient size (includes targeted exams where dose is matched to clinical indication); or iterative reconstruction. Contrast material: OMNI 350; Contrast volume: 65 ml; Contrast route: INTRAVENOUS (IV); COMPARISON: No relevant prior studies available. RADIATION DOSE METRICS: Total DLP (mGy-cm): 482.67 FINDINGS: Pulmonary arteries: Normal. No pulmonary emboli. Aorta: Unremarkable. No aortic aneurysm. No aortic dissection. Lungs: Unremarkable. No consolidation. No masses. Pleural spaces: Unremarkable. No pneumothorax. No pleural effusion. Heart: Unremarkable. No cardiomegaly. No pericardial effusion. Lymph nodes: Unremarkable. No enlarged lymph nodes. Bones/joints: Unremarkable. No acute fracture. Soft tissues: Unremarkable. CT/CT angio chest PE [facility] [id number] IMPRESSION: No acute findings. Radiation Dose CTDIVOL = (mGy): DLP = 482.67 (mGy-cm)
[2020-11-08] MEDS: iohexol 350 mg/mL 100 mL Btl IV (13:59)
[2020-11-08 14:21] VITALS: BP 113/82; PULSE 81; RESP 20; O2SAT 94
[2020-11-08 14:42] VITALS: BP 117/79; PULSE 97; RESP 18; TEMP 37.1; O2SAT 98
--- NOTE | 2020-11-09 15:20 | DCPLANNER ---
agricultural crop farm manager had message to schedule an outpatient stress test for patient. agricultural crop farm manager faxed order to centralized scheduling, will call for appointment information.
--- NOTE | 2020-12-03 14:20 | DCPLANNER ---
Patient had a follow up appointment scheduled for 11.20.20 for an outpatient stress test - patient did attend appointment.
== END 2020-11-08 14:46 | disposition home or self-care (01) ==
PROVIDERS: Emergency Provider Family Medicine; PCP Nurse Practitioner Family
DX: I20.9 Angina pectoris, unspecified (principal); F17.210 Nicotine dependence, cigarettes, uncomplicated
CPT/HCPCS: 12345; 71275; 80053; 83690; 84484; 85025; 85378; 85610; 93005; 99283; Q9967

== ENCOUNTER 2020-11-20 09:46 | Outpatient (CLI) | payer OTHER, SELFPAY ==
[2020-11-20 10:09] VITALS: BMI 32.5
--- NOTE | 2020-11-20 10:09 | ECG_ITS ---
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 The perfusion scan will be documented separately. DATA: Baseline heart rate was 60 beats per minute. Baseline blood pressure was 119/89 millimeters of mercury. Target heart rate was 176. Maximum heart rate achieved was 99. which was 56 % of the predicted target heart rate. Maximum blood pressure was 134/77 millimeters of mercury. The reason for ending the test was completion of the protocol. The patient did not experience any symptoms. ELECTROCARDIOGRAM: BASELINE: Sinus rhythm. Normal axis. Otherwise, no ST-T changes suggestive of ischemia noted. No arrhythmia noted. EXERCISE: After Lexiscan injection, no ST-T changes suggestive of ischemic noted. No arrhythmia noted. CONCLUSION: Please note due to baseline abnormality of the EKG specificity and sensitivity of the EKG portion of LexiScan MIBI stress test will be low 1. EKG not suggestive of ischemia 2. Lexiscan injection unremarkable. 3. Perfusion scan will be documented separately. Electronically Signed On 11-20-2020 17:01:38 SUPERINTENDENT SALES by GUNNAR FAY [id number]
--- NOTE | 2020-11-20 10:10 | NMCV_ITS ---
NM naida perf SPECT r/s* [id number] Arelis Corado Age: 45 Gender: F : 1975 Exam Date: 11/20/2020 11:01 Ordering Phys: Brea Modi MD [facility] [place] Technologist: QIAN Kang Exam Location: [facility] Indications: Angina STRESS TEST Please [facility] IMAGE PROTOCOL Rest/Stress 1 Lexiscan Day Radiopharmaceutical Dose (mCi) Administration Site Administered by Rest: Tc-99m 10.6 IV QIAN Rodriguez Sestamibi Stress:Tc-99m 32.4 IV QIAN Kang Sestamierick Rest: 20-Nov-2020 60 Discovery 630 Stress: 20-Nov-2020 45 Discovery 630 0.4mg Lexiscan. Images obtained in supine and prone position. SPECT RESULTS Technical Quality: Good Raw Data Analysis: Breast attenuation Image Corrections: No attenuation or motion correction applied Summed Stress Score: 0 Summed Rest Score: 0 Summed Difference Score: 0 PERFUSION FINDINGS SPECT images demonstrate homogeneous tracer distribution throughout the myocardium. FUNCTIONAL RESULTS (calculated via Gated SPECT) Stress Image LV EF (%): 72 Stress EDV (mL):92 TID: 0.89 Stress ESV (mL):26 Rest Image LV EF (%): 72 FUNCTIONAL FINDINGS: There is normal left ventricular systolic function. IMPRESSIONS Myocardial perfusion imaging is normal. EKG segment will be documented separately. Faby Ku MD (Electronically Signed) Final Date: 20 November 2020 15:13 S
--- NOTE | 2020-11-20 12:28 | SUR.PREOP ---
Patient reports no pain or discomfort prior to the start of the procedure.
[2020-11-20] MEDS: regadenoson 0.4 Mg/5 ml Syringe IVP (12:39)
[2020-11-20 13:19] VITALS: BP 133/68; PULSE 76
== END 2020-11-20 09:47 | disposition home or self-care (01) ==
LOC: CDL 09:51
PROVIDERS: PCP Nurse Practitioner Family; Visit Provider Family Medicine
DX: I20.9 Angina pectoris, unspecified (principal); M54.9 Dorsalgia, unspecified; M47.816 Spondylosis without myelopathy or radiculopathy, lumbar region; M54.12 Radiculopathy, cervical region; M50.00 Cervical disc disorder with myelopathy, unspecified cervical region; F17.210 Nicotine dependence, cigarettes, uncomplicated
CPT/HCPCS: 78452; 93017; 99213; A9500; J2785

== ENCOUNTER → 2020-12-28 08:26 | Outpatient (BNVA) | payer OTHER, SELFPAY | PROVIDERS: PCP Nurse Practitioner Family; Visit Provider Anesthesiology Pain Medicine | DX: G89.29 Other chronic pain (principal); M48.02 Spinal stenosis, cervical region; M50.00 Cervical disc disorder with myelopathy, unspecified cervical region; M51.17 Intervertebral disc disorders with radiculopathy, lumbosacral region; M47.816 Spondylosis without myelopathy or radiculopathy, lumbar region; M54.9 Dorsalgia, unspecified; F17.210 Nicotine dependence, cigarettes, uncomplicated; Z79.891 Long term (current) use of opiate analgesic | CPT/HCPCS: 99214 ==

== ENCOUNTER → 2021-02-04 09:04 | Outpatient (BNVA) | payer OTHER, SELFPAY | PROVIDERS: PCP Nurse Practitioner Family; Visit Provider Anesthesiology Pain Medicine | DX: G89.29 Other chronic pain (principal); M79.18 Myalgia, other site; M54.9 Dorsalgia, unspecified; M47.816 Spondylosis without myelopathy or radiculopathy, lumbar region; M54.12 Radiculopathy, cervical region; M50.00 Cervical disc disorder with myelopathy, unspecified cervical region; F17.210 Nicotine dependence, cigarettes, uncomplicated; Z79.891 Long term (current) use of opiate analgesic | CPT/HCPCS: 20553; 72040; 99214; J1030; J3490 ==

== ENCOUNTER 2021-02-11 06:00 | Outpatient (RCR) | payer OTHER, SELFPAY | END 2021-03-01 23:59 | disposition home or self-care (01) | LOC: GPT 06:00 | PROVIDERS: PCP Nurse Practitioner Family; Referring Provider Orthopaedic Surgery; Visit Provider Orthopaedic Surgery | DX: Z47.89 Encounter for other orthopedic aftercare (principal) | CPT/HCPCS: 97032; 97110; 97140; 97162; 97530 ==

== ENCOUNTER 2021-03-02 06:00 | Outpatient (RCR) | payer OTHER, SELFPAY | END 2021-03-31 23:59 | disposition home or self-care (01) | LOC: GPT 06:00 | PROVIDERS: PCP Nurse Practitioner Family; Referring Provider Orthopaedic Surgery; Visit Provider Orthopaedic Surgery | DX: Z47.89 Encounter for other orthopedic aftercare (principal) | CPT/HCPCS: 97032; 97110; 97140 ==

== ENCOUNTER → 2021-03-12 10:12 | Outpatient (BNVA) | payer OTHER, SELFPAY | PROVIDERS: PCP Nurse Practitioner Family; Visit Provider Anesthesiology Pain Medicine | DX: M51.17 Intervertebral disc disorders with radiculopathy, lumbosacral region (principal); M47.816 Spondylosis without myelopathy or radiculopathy, lumbar region; M54.9 Dorsalgia, unspecified; M48.02 Spinal stenosis, cervical region; M50.00 Cervical disc disorder with myelopathy, unspecified cervical region; F17.210 Nicotine dependence, cigarettes, uncomplicated; Z79.891 Long term (current) use of opiate analgesic | CPT/HCPCS: 99214 ==

== ENCOUNTER 2021-04-01 06:00 | Outpatient (RCR) | payer OTHER, SELFPAY | END 2021-05-01 23:59 | disposition home or self-care (01) | LOC: GPT 06:00 | PROVIDERS: PCP Nurse Practitioner Family; Referring Provider Orthopaedic Surgery; Visit Provider Orthopaedic Surgery | DX: Z47.89 Encounter for other orthopedic aftercare (principal) | CPT/HCPCS: 97032; 97110; 97140; 97164; 97530 ==

== ENCOUNTER → 2021-04-30 12:54 | Outpatient (BNVA) | payer OTHER, SELFPAY | PROVIDERS: PCP Nurse Practitioner Family; Visit Provider Anesthesiology Pain Medicine | DX: G89.29 Other chronic pain (principal); M48.02 Spinal stenosis, cervical region; M51.17 Intervertebral disc disorders with radiculopathy, lumbosacral region; M47.816 Spondylosis without myelopathy or radiculopathy, lumbar region; G99.2 Myelopathy in diseases classified elsewhere; Z79.891 Long term (current) use of opiate analgesic | CPT/HCPCS: 99214 ==

== ENCOUNTER 2021-05-02 06:00 | Outpatient (RCR) | payer OTHER, SELFPAY | END 2021-06-01 23:59 | disposition home or self-care (01) | LOC: GPT 06:00 | PROVIDERS: PCP Nurse Practitioner Family; Referring Provider Orthopaedic Surgery; Visit Provider Orthopaedic Surgery | DX: Z47.89 Encounter for other orthopedic aftercare (principal); Z98.1 Arthrodesis status | CPT/HCPCS: 97032; 97110; 97140; 97164; 97530 ==

== ENCOUNTER 2021-06-02 06:00 | Outpatient (RCR) | payer OTHER, SELFPAY | END 2021-07-01 23:59 | disposition home or self-care (01) | LOC: GPT 06:00 | PROVIDERS: PCP Nurse Practitioner Family; Referring Provider Orthopaedic Surgery; Visit Provider Orthopaedic Surgery | DX: Z98.1 Arthrodesis status (principal) | CPT/HCPCS: 97032; 97110; 97530 ==

== ENCOUNTER → 2021-07-01 09:25 | Outpatient (BNVA) | payer OTHER, SELFPAY | PROVIDERS: PCP Nurse Practitioner Family; Visit Provider Anesthesiology Pain Medicine | DX: G89.29 Other chronic pain (principal); M51.17 Intervertebral disc disorders with radiculopathy, lumbosacral region; M48.02 Spinal stenosis, cervical region; M47.816 Spondylosis without myelopathy or radiculopathy, lumbar region; G99.2 Myelopathy in diseases classified elsewhere; Z79.891 Long term (current) use of opiate analgesic | CPT/HCPCS: 99214 ==

== ENCOUNTER → 2021-08-10 15:35 | Outpatient (BNVA) | payer OTHER, SELFPAY | PROVIDERS: PCP Nurse Practitioner Family; Visit Provider Orthopaedic Surgery | DX: M50.020 Cervical disc disorder with myelopathy, mid-cervical region, unspecified level (principal); M54.9 Dorsalgia, unspecified | CPT/HCPCS: 72040; 72100 ==

== ENCOUNTER → 2021-08-31 09:26 | Outpatient (BNVA) | payer OTHER, SELFPAY | PROVIDERS: PCP Nurse Practitioner Family; Visit Provider Anesthesiology Pain Medicine | DX: G89.29 Other chronic pain (principal); M47.816 Spondylosis without myelopathy or radiculopathy, lumbar region; M51.17 Intervertebral disc disorders with radiculopathy, lumbosacral region; M79.601 Pain in right arm; M79.602 Pain in left arm; Z79.891 Long term (current) use of opiate analgesic; M54.2 Cervicalgia | CPT/HCPCS: 99214 ==

== ENCOUNTER → 2021-09-03 09:20 | Outpatient (BNVA) | payer OTHER, SELFPAY | PROVIDERS: PCP Clinical Nurse Specialist Adult Health; Visit Provider Family Medicine | DX: Z01.818 Encounter for other preprocedural examination (principal); Z20.822 Contact with and (suspected) exposure to COVID-19 | CPT/HCPCS: 80048; 85025; 85610; 87635 ==

== ENCOUNTER 2021-09-09 07:50 | Outpatient (CLI) | payer OTHER, SELFPAY ==
[2021-09-09] VITALS (12 sets, daily range): BP systolic 111–137; BP diastolic 70–92; PULSE 53–70; RESP 12–18; TEMP 36.6; O2SAT 93–96; BMI 31.0
--- NOTE | 2021-09-09 07:30 | XACV_ITS ---
Ht: 163 cm Wt: 82 kg BSA: 1.95 m2 Gender: Female : 1975 Any Known Allergies: Other Exam Priority: Routine Procedure(s): Procedure Description: Diagnostic procedure Procedure Description: Left Heart Catheterization Procedure Description: Left ventriculography Procedure Description: Coronary Angiography Diagnostic Cath Status: Elective Diagnostic Findings * No disease noted in the Left Main, Left Anterior Descending, Right, or Circumflex coronary arteries. * Coronary angiography shows right dominance. Conclusions 1. Elevated LVEDP. 2. No disease noted in the Left Main, Left Anterior Descending, Right, or Circumflex coronary arteries. 3. Normal left ventricular systolic function. Ejection fraction of 55%. Recommendations * Aggressive risk factor modification. * We will initiate Lasix 20mg daily. * Outpatient cardiology follow up in 4 weeks. Interventional RX Recommendation: medical therapy and/or counseling Diagnostic RX Recommendation: medical therapy and/or counseling Anticoagulation: Heparin Ventriculography Ejection Fraction: 55.0 % Pressures Phase:Rest AO : 92 / 65 ( 78 ) @ 7:40:00 AM 98 / 67 ( 81 ) @ 7:40:00 AM 121 / 78 ( 99 ) @ 7:46:00 AM 124 / 71 ( 100 ) @ 7:46:00 AM LV : 127 / 4 / 26 @ 7:45:00 AM 122 / 7 / 27 @ 7:46:00 AM 125 / 7 / 26 @ 7:46:00 AM Valves Phase:DefaultPhase AV : 4.0 @ 9:52:07 AM AV Mean Gradient: 15.0 @ 9:52:07 AM Clinical Evaluation EBL: 5mL-10mL Procedural Details Procedure Consent Obtained. Pre-Procedure Time Out. Identified patient by full name and date of as verbalized by the patient/guarantor. Does the consent match the physician's order: Yes. Accurate & Complete Informed Consent: Yes. Inpatient/Outpatient History & Physical on Chart: Yes. If H&P is completed, is and addenduem needed: No; If yes, is the addendum complete: N/A. Visualize and Verify Site with Patient/Guarantor: N/A. Relevant Radiology Images available: N/A. Pre-op teaching completed and patient verbalized understanding. The risks, benefits, and alternatives of sedation and/or procedure were discussed by physician. The patient agrees to continue. Allen John will be electrical cad technician for procedure. Procedure started. [facility] Clinical Fraility Score: 2: Well. Greenskeeper Indications: New Onset Angina. Chest Pain Symptom Assessment: Typical Angina Symptoms. Cardiovascular Instability: No. Correct patient, site and procedure confirmed by cath team. PERRLA. Strong, equal hand assistant curator bilaterally. Lungs clear x 5 lobes. IV Site on Arrival: 20 gauge in the right anticubital. IV Fluids: 0.9% NaCl at KVO. 0 mL infused prior to matlab developer. Pre Procedural Pulses: bilateral dorsalis pedis was 2+. Pre Procedural Pulses: bilateral posterior tibial was 1+. Pre Procedural Pulses: bilateral radial was 3+. Oxygen started at 2liters/min via nasal canula. Baseline sample Acquired. HR: 60 BPM. right radial was prepped with chloroprep then draped in the usual sterile fashion. right groin was prepped with chloroprep then draped in the usual sterile fashion. Equipment: 6F - Radial. Physician arrived. Cardiac Cath Pack. ACIST Manifold Kit Model BT 2000. Heparinized Saline (2 units/mL), 1000 mL bag. Physician scrubbed in. Immediate Pre-Procedure Time Out. Correct Patient: Yes; Correct Procedure: Yes; Correct Site: Yes; Correct Patient Position: Yes; Correct Supplies: Yes; Dried Flammable Prep: Yes; Blood Products Available: N/A;. Lidocaine 1% infiltrated to the right radial. Arterial access obtained. A 5 serbian TIG catheter in over wire. Multiple views taken of left coronary artery. Catheter redirected to the RCA. Multiple views taken of right coronary artery. Catheter removed over the exchange wire. A 5 serbian Angled Pig catheter in over wire. EDP Sample taken: LV 127/4,26; HR: 70 BPM; SpO2: 96%. LV gram performed in EUGENE @ 10 mL/second for a total of 30 mL. EDP Sample taken: LV 122/7,27; HR: 62 BPM; SpO2: 94%. Pullback taken: LV 125/7,26; AO 121/78(99); Mean: 15mmHg, Peak to Peak: 4mmHg, SEP: 7sec/min; HR: 69 BPM; SpO2: 96%. Catheter removed over the exchange wire. Physician scrubbed out. A TR Band was successful obtaining hemostatsis at the Right Radial artery insertion site. TR band placed. Hemostasis obtained. Post Procedure: Pulses reassessed and unchanged. PERRLA. Strong, equal hand assistant curator bilaterally. No VTE prophylaxis required. Medication's Wasted: Lidocaine 1% = 17 mL. Medication's Wasted: Nitro = 49.8 mg. Medication's Wasted: Heparin = 1000 units. Total IV fluids: 40 mL. Medication's Wasted: Other = versed 1 mg. Contrast type used: Omnipaque 300 mgI/mL, 500 mL bottle. Post-op diagnosis: non obstructive CAD. Complications: none. Estimated blood loss: 5mL-10mL. Procedure completed. Patient transferred by wheelchair to CPRU. Vital chart was stopped. Access Site Site: Right Radial artery Sheath Size: 6 Fr Hemostasis Method: TR Band Hemostasis Success: Successful Procedure Medications Start: 9:30 AM Stop: 9:30 AM Medication: Versed Amount: 1 mg Route: I.V. Start: 9:31 AM Stop: 9:31 AM Medication: Fentanyl Amount: 50 mcg Route: I.V. Start: 9:33 AM Stop: 9:33 AM Medication: Versed Amount: 1 mg Route: I.V. Start: 9:35 AM Stop: 9:35 AM Medication: Fentanyl Amount: 50 mcg Route: I.V. Start: 9:36 AM Stop: 9:36 AM Medication: Nitrogylcerin Amount: 200 mcg Route: I.A. Start: 9:39 AM Stop: 9:39 AM Medication: Heparin Amount: 5000 units Route: I.V. Start: 9:41 AM Stop: 9:41 AM Medication: Versed Amount: 1 mg Route: I.V. I, the attending physician, have reviewed and verified all procedure medications. Yes, all medications given per verbal order History/Risk Factors Hypertension: No Dyslipidemia: No Peripheral Arterial Disease (PAD): No Myocardial Infarction (MO): No Obesity: No Renal Disease: No Tobacco Use: Current/Recent(w/in 1 year) Prior Interventions PCI: No CABG: No Valve Surgery: No Report Signatures Finalized by Tayo Regan MD on 09/13/2021 04:26 PM
[2021-09-09] MEDS: diphenhydrAMINE 50 mg Capsule PO (08:44)
--- NOTE | 2021-09-09 09:30 | W.PM.OPSUD ---
Surgery/Procedure H&P Update DATE OF PROCEDURE: September 09, 2021 DATE H&P PERFORMED: 08/31/21 H&P UPDATE INFORMATION: I have reviewed H&P completed within last 30 days, I have examined patient prior to procedure and No changes to prior documentation PREOP DIAGNOSIS: Worsening angina PRIMARY INDICATION FOR PROCEDURE: Worsening angina PLANNED PROCEDURE: Operation Date: 09/09/21 08:30 Proposed Procedures p Cardiac Catheterization(Left) - Tayo Regan M.D Possible percutaneous coronary intervention PATIENT REASSESSED PRIOR TO SEDATION, WITH NO CHANGE NOTED: Yes PHYSICAL EXAM: alert, oriented x 3 and clear to auscultation bilaterally AIRWAY EVAL/ANESTHESIA PLAN: ASA III, Monitored Anesthesia, Local Anesthesia, Risks, benefits & alternatives of sedation and/or procedure discussed and Patient agrees to continue as planned
--- NOTE | 2021-09-09 10:00 | PC.NURSE ---
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 tr band on right wrist with distal pulses present. pt complains of no pain. pt educated on restrictions of right wrist. pt acknowledged understanding. will re-educated throughout recovery. pt monitored per protocol.
== END 2021-09-09 13:13 | disposition home or self-care (01) ==
PROVIDERS: PCP Clinical Nurse Specialist Adult Health; Visit Provider Internal Medicine
DX: I20.0 Unstable angina (principal); Z79.891 Long term (current) use of opiate analgesic; F17.210 Nicotine dependence, cigarettes, uncomplicated
CPT/HCPCS: 36415; 93452; C1769; C1887; C1894; J1644; J2250; J3010; J3490; J7030; Q0163; Q9967

== ENCOUNTER → 2021-09-16 14:12 | Outpatient (BNVA) | payer OTHER, SELFPAY | PROVIDERS: PCP Clinical Nurse Specialist Adult Health; Visit Provider Nurse Practitioner Family | DX: R07.9 Chest pain, unspecified (principal) | CPT/HCPCS: 80048 ==

== ENCOUNTER 2021-10-06 08:26 | Outpatient (CLI) | payer OTHER, SELFPAY ==
--- NOTE | 2021-10-06 08:00 | MR_ITS ---
WS: [id number] MRI CERVICAL SPINE with and without contrast. 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 Prior surgery. COMPARISON: 12/09/2019 Technique: Multiplanar, multisequence noncontrast imaging of the cervical spine. Sagittal and axial T 1 fat sat sequences post-MultiHance 18 cc IV. Mild increase in the cervical lordosis. Anterior cervical fusion extends from C5 to C7. Interbody spacers obscuring detail at C5-6 and C6-7 d isc. On the STIR sequence there is some increased signal within the cervical cord which is thought to be a rtifact. The cord appears normal on the T1 and T2 sequences with no enhancement. No inferior displacement of cerebellar tonsils. C2-C3: Mild osteophytic ridging and a central disc protrusion. No stenosis. C3-C4: Moderate osteophytic ridging and annular disc bulging with a central disc protrusion. Near eff acement of the ventral CSF. There is only mild bilateral foraminal narrowing and facet arthritis. C4-C5: Mild diffuse annular disc bulging and osteophytic ridging. There is mild bilateral facet arthr itis. Very mild encroachment upon the LEFT foramen. No high-grade stenosis. C5-C6: Osteophytic ridging with annular disc bulging and mild facet arthritis. Mild encroachment upon the ventral thecal sac with very slight deformity of the ventral thecal sac. Mild central and bilate ral foraminal stenosis. Slightly larger disc osteophyte in the LEFT foramen. C6-C7: Diffuse osteophytic ridging with osteophytes encroaching upon the ventral thecal sac. There ma y be a component of disc disease also but this is obscured by the artifact. There is mild central and bilateral foraminal stenosis. C7-T1: No stenosis. Paravertebral soft tissues are negative. No enhancement is identified within the cord or along the wilson rgical site. MR/MR cervical spine wo/w [id number] IMPRESSION: 1. Status post anterior cervical fusion with interbody spacers from C5 to C7 . 2. No discitis or osteomyelitis or abnormal enhancement. 3. Mild disc osteophyte encroachment upon the ventral thecal sac at C3-4 with mild progression since the prior study. No high-grade stenosis. 4. Mild central and bilateral foraminal stenosis, LEFT greater than RIGHT at C 5-6 due to combination of osteophytic ridging and disc disease and facet diseas e. 5. Mild central and bilateral foraminal stenosis at C6-7 due to disc and osteo phyte disease.
--- NOTE | 2021-10-06 08:45 | MR_ITS ---
WS: [id number] MRI LUMBAR SPINE WITH AND WITHOUT CONTRAST. HISTORY: Chronic back and neck pain. COMPARISON: 02/03/2020 TECHNIQUE: Sagittal and axial multisequence imaging is submitted. Sagittal and axial T1 fat sat seque nces post-MultiHance 18 cc IV. Normal posterior alignment of the lumbar vertebral bodies. No acute fracture. Very small amount of ma rrow edema along the inferior endplate of L5. Mild disc desiccation without loss of height at L4-5 an d L5-S1. Also noted is mild disc desiccation at T8-10-11 and T11-12. Conus terminates normally at L1-2 disc level. L1-L2: Mild facet arthritis. No stenosis. L2-L3: Mild facet arthritis. No stenosis. Very mild disc bulging. L3-L4: Very minimal annular disc bulging and facet arthritis. No stenosis. L4-L5: Mild annular disc bulging with a shallow RIGHT paracentral disc protrusion. The disc protrusio n has moderately decreased in size since the prior study. No contact on the nerve roots. Mild to mode rate facet joint arthritis. Very minimal narrowing of the foramina. Very slight narrowing of the RIGH T subarticular recess with no progression. L5-S1: Mild annular disc bulging with a very shallow central disc protrusion and osteophytic ridging. There is a larger anterior disc protrusion also noted. Disc osteophyte complexes encroach into the f oramina bilaterally with mild foraminal narrowing. Slightly greater narrowing of the RIGHT foramen wi th encroachment and contact along the inferior exiting L5 nerve root. Similar to the prior study. The re is very mild disc contact on the LEFT S1 nerve root. No discitis or osteomyelitis. There is mild increased T2 signal in the soft tissues at the L4-5 level posteriorly. Patient denies surgery in the lumbar spine but there does appear to be a very small RIG HT laminectomy defect at L4-5. Small amount of fluid in the cul-de-sac and nabothian cysts. MR/MR lumbar spine wo/w con [id number] IMPRESSION: 1. No high-grade central or foraminal stenosis. 2. RIGHT paracentral disc protrusion at L4-5 as described on the prior study h as moderately decreased in size. 3. Osteophytic ridging and disc disease at L5-S1 resulting in mild bilateral f oraminal stenosis, RIGHT greater than LEFT with no change. 4. There is very mild disc contact on the exiting RIGHT nerve root and the tra versing LEFT S1 nerve root. 5. Minimal postsurgical changes at the L4-5 level due to a RIGHT hemilaminecto my defect. No fluid collections or abnormal enhancement.
[2021-10-06] MEDS: gadobenate dimeglumine 20 mL vial IV (09:37)
== END 2021-10-06 08:27 | disposition home or self-care (01) ==
LOC: RADSHAW 08:29
PROVIDERS: PCP Clinical Nurse Specialist Adult Health; Visit Provider Orthopaedic Surgery
DX: M50.020 Cervical disc disorder with myelopathy, mid-cervical region, unspecified level (principal); M51.17 Intervertebral disc disorders with radiculopathy, lumbosacral region; M51.26 Other intervertebral disc displacement, lumbar region
CPT/HCPCS: 72156; 72158; A9577

== ENCOUNTER 2021-10-26 11:14 | Outpatient (CLI) | payer OTHER, SELFPAY ==
--- NOTE | 2021-10-26 11:19 | XR_ITS ---
WS: [email or web address] Acute abdomen series, 10/26/2021 Clinical Data: ABDOMINAL PAIN Comparison: None. Findings: In the chest there are no nodules, masses or effusions. The heart is normal. The pulmonary vascularity is not increased. There is an anterior cervical disc fusion. No free air is seen beneath the diaphragms. No abnormal intra-abdominal masses or calcifications are seen. There is minimal fecal material in the ascending colon. The bladder is full. There are scattere d air-fluid levels on the upright image. XR/XR acute abdomen series [id number] Impression: Negative acute abdomen series.
== END 2021-10-26 11:15 | disposition home or self-care (01) ==
LOC: RAD 11:16
PROVIDERS: PCP Clinical Nurse Specialist Adult Health; Visit Provider Clinical Nurse Specialist Adult Health
DX: R10.9 Unspecified abdominal pain (principal)
CPT/HCPCS: 74022

== ENCOUNTER 2021-10-27 06:00 | Outpatient (RCR) | payer OTHER, SELFPAY | END 2021-11-01 23:59 | disposition home or self-care (01) | LOC: GPT 06:00 | PROVIDERS: PCP Clinical Nurse Specialist Adult Health; Referring Provider Physician Assistant; Visit Provider Physician Assistant | DX: M54.2 Cervicalgia (principal); M54.50 Low back pain, unspecified | CPT/HCPCS: 97140; 97162 ==

== ENCOUNTER 2021-11-02 06:00 | Outpatient (RCR) | payer OTHER, SELFPAY | END 2021-11-29 23:59 | disposition home or self-care (01) | LOC: GPT 06:00 | PROVIDERS: PCP Clinical Nurse Specialist Adult Health; Referring Provider Physician Assistant; Visit Provider Physician Assistant | DX: M54.2 Cervicalgia (principal); M54.50 Low back pain, unspecified | CPT/HCPCS: 97140; G0283 ==

== ENCOUNTER 2021-11-30 06:00 | Outpatient (RCR) | payer OTHER, SELFPAY | END 2021-12-30 23:59 | disposition home or self-care (01) | LOC: GPT 06:00 | PROVIDERS: PCP Clinical Nurse Specialist Adult Health; Referring Provider Physician Assistant; Visit Provider Physician Assistant | DX: M54.2 Cervicalgia (principal); M54.50 Low back pain, unspecified | CPT/HCPCS: 97110; 97140; G0283 ==

== ENCOUNTER 2021-12-20 08:32 | Outpatient (CLI) | payer OTHER, SELFPAY ==
--- NOTE | 2021-12-20 08:42 | CT_ITS ---
WS: [id number] CT ABDOMEN AND PELVIS WITH CONTRAST HISTORY: ABDOMINAL PAIN TECHNIQUE: Imaging performed of the abdomen and pelvis with IV contrast. Single phase imaging of the abdomen. Coronal and sagittal reformats are submitted. All CT scans at [facility] use at isacc st one of these dose optimization techniques: automated exposure control; mA and/or kV adjustment per patient size (includes targeted exams where dose is matched to clinical indication); or iterative re construction. IV CONTRAST: Omnipaque 300; 95 mL IV. Oral contrast: Yes. DLP: 1584.69 mGy.cm COMPARISON: None available. Lower thorax: Lung bases are clear. Heart is normal size. No hiatal hernia. Liver/biliary system: Normal size with no intrahepatic dilatation. Gallbladder: Status post cholecystectomy. Pancreas: Normal size pancreas and pancreatic duct. No adjacent inflammation. Spleen: Normal size spleen. No mass or infarct. Adrenal glands: Normal. Right kidney: Normal. Left kidney: Normal. Aorta: Normal. Lymphadenopathy: None. Free fluid: Tiny amount which may be physiologic in the pelvis.. GI tract: Stomach is moderately well distended with oral contrast. Very mild thickening of the proxim al jejunum which could be due to underdistention. No adjacent edema. No hyperemia. The appendix is no rmal but does contain a small appendicolith. No GI tract obstruction. No wall thickening. Abdominal wall: Unremarkable abdominal wall. No hernia. Pelvis: Tiny amount of free fluid in the pelvis. Uterus is very slightly heterogeneous. Mild distention of the endometrium may be due to menstrual cyc le. Peripherally enhancing cysts within the LEFT ovary are probably functional cysts. Small nabothian cysts at the cervix. Bones: Degenerative disc disease at L5-S1. CT/CT abdomen pelvis w con* [id number] IMPRESSION: 1. Tiny amount of free fluid in the cul-de-sac is probably physiologic. 2. Mild fluid distention of the endometrial canal may be due to menstrual cycl e. If any history of vaginal bleeding consider transvaginal pelvic ultrasound e valuation. 3. Prior cholecystectomy. 4. Normal appendix other than a small appendicolith.
[2021-12-20] MEDS: iohexol 300 mg/mL 50 mL Btl PO (09:05)
[2021-12-20] MEDS: iohexol 300 mg/mL 100 mL Btl IV (10:29)
== END 2021-12-20 08:33 | disposition home or self-care (01) ==
LOC: RAD 08:33
PROVIDERS: PCP Clinical Nurse Specialist Adult Health; Visit Provider Nurse Practitioner Family
DX: R10.9 Unspecified abdominal pain (principal); Z90.49 Acquired absence of other specified parts of digestive tract
CPT/HCPCS: 74177

== ENCOUNTER 2021-12-31 06:00 | Outpatient (RCR) | payer OTHER, SELFPAY | END 2022-01-29 23:59 | disposition home or self-care (01) | LOC: GPT 06:00 | PROVIDERS: PCP Clinical Nurse Specialist Adult Health; Referring Provider Physician Assistant; Visit Provider Physician Assistant | DX: M54.2 Cervicalgia (principal); M54.50 Low back pain, unspecified | CPT/HCPCS: 97110; 97140; G0283 ==

== ENCOUNTER 2022-01-30 | Outpatient (RCR) | payer SELFPAY | END 2022-03-01 23:59 | disposition home or self-care (01) | LOC: GPT | PROVIDERS: Referring Provider Physician Assistant; Visit Provider Physician Assistant | DX: M54.50 Low back pain, unspecified (principal); M54.2 Cervicalgia | CPT/HCPCS: 97110; 97140; G0283 ==

== ENCOUNTER 2022-02-06 19:31 | Emergency (ER) | payer SELFPAY ==
[2022-02-06 19:55] VITALS: RESP 18; O2SAT 99
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
[2022-02-06 21:52] VITALS: BP 132/87; PULSE 83; RESP 14; O2SAT 99
== END 2022-02-06 23:36 | disposition home or self-care (01) ==
PROVIDERS: Emergency Provider Nurse Practitioner Family
DX: S16.1XXA Strain of muscle, fascia and tendon at neck level, initial encounter (principal); S39.012A Strain of muscle, fascia and tendon of lower back, initial encounter; R51.9 Headache, unspecified; M79.672 Pain in left foot; M79.89 Other specified soft tissue disorders; V59.9XXA Occupant (driver) (passenger) of pick-up truck or van injured in unspecified traffic accident, initial encounter
CPT/HCPCS: 70450; 72040; 72100; 73630; 99283

== ENCOUNTER 2022-03-02 06:00 | Outpatient (RCR) | payer OTHER, SELFPAY | END 2022-03-15 23:59 | disposition home or self-care (01) | LOC: GPT 06:00 | PROVIDERS: Referring Provider Physician Assistant; Visit Provider Physician Assistant | DX: Z47.89 Encounter for other orthopedic aftercare (principal); Z98.1 Arthrodesis status | CPT/HCPCS: 97110; 97140; G0283 ==

== ENCOUNTER → 2022-03-15 14:21 | Outpatient (BNVA) | payer OTHER, SELFPAY | PROVIDERS: PCP Clinical Nurse Specialist Adult Health; Visit Provider Internal Medicine | DX: R07.2 Precordial pain (principal); R53.83 Other fatigue | CPT/HCPCS: 84439; 84443 ==

== ENCOUNTER → 2022-04-14 10:20 | Outpatient (BNVA) | payer OTHER, SELFPAY | PROVIDERS: PCP Clinical Nurse Specialist Adult Health; Visit Provider Orthopaedic Surgery | DX: M47.896 Other spondylosis, lumbar region (principal); M47.897 Other spondylosis, lumbosacral region; M54.6 Pain in thoracic spine; M54.50 Low back pain, unspecified | CPT/HCPCS: 72040; 72072; 72110 ==

== ENCOUNTER → 2022-05-02 08:29 | Outpatient (BNVA) | payer OTHER, SELFPAY | PROVIDERS: PCP Clinical Nurse Specialist Adult Health; Visit Provider Podiatrist Foot & Ankle Surgery | DX: M25.561 Pain in right knee (principal); M79.671 Pain in right foot; R30.0 Dysuria | CPT/HCPCS: 73590; 73630; 81000 ==

== ENCOUNTER → 2022-05-23 11:43 | Outpatient (BNVA) | payer OTHER, SELFPAY | PROVIDERS: PCP Clinical Nurse Specialist Adult Health; Referring Provider Physician Assistant; Visit Provider Nurse Practitioner | DX: R51.9 Headache, unspecified (principal); R26.89 Other abnormalities of gait and mobility; R29.6 Repeated falls; G62.9 Polyneuropathy, unspecified; R29.90 Unspecified symptoms and signs involving the nervous system | CPT/HCPCS: 36415; 82607; 82746; 83921; 86334 ==

== ENCOUNTER 2022-05-23 13:00 | Outpatient (CLI) | payer OTHER, SELFPAY | END 2022-05-23 13:01 | disposition home or self-care (01) | LOC: SLEEP 05-25 16:51 | PROVIDERS: PCP Clinical Nurse Specialist Adult Health; Visit Provider Nurse Practitioner Family | DX: G47.00 Insomnia, unspecified (principal); R06.83 Snoring; G47.10 Hypersomnia, unspecified | CPT/HCPCS: G0399 ==

== ENCOUNTER 2022-06-14 10:18 | Outpatient (CLI) | payer OTHER, SELFPAY ==
--- NOTE | 2022-06-14 10:15 | MR_ITS ---
WS: [email or web address] MRI CERVICAL SPINE NONCONTRAST TECHNIQUE: Sagittal T1, T2 and STIR imaging. Axial T2, gradient, and fiesta imaging. CLINICAL INFORMATION: lumbar pain COMPARISON: MRI October 06, 2021 FINDINGS: Straightening of the normal cervical lordosis. ACDF C5-C7. No high-grade central canal stenosis. C2-C3: Normal. C3-C4: Mild disc osteophytic ridging. Mild facet arthropathy. Mild LEFT greater than RIGHT bony nate inal narrowing. Mild central canal stenosis with tiny shallow central protrusion. C4-C5: Disc osteophyte complex eccentric to the LEFT. Mild LEFT and no significant RIGHT foraminal na rrowing. Mild facet arthropathy. Spinal canal is patent. C5-C6: ACDF. Moderate LEFT and mild to moderate RIGHT bony foraminal narrowing. C6-C7: Postoperative changes ACDF. Moderate LEFT and mild RIGHT bony foraminal narrowing. Spinal stacey l is patent. C7-T1: Mild disc bulging and osteophytic ridging. Mild LEFT and no significant RIGHT foraminal narrow ing. Spinal canal is patent Visualized brain stem structures: Normal. Prevertebral soft tissues: Normal. MR/MR cervical spin wo con* [id number] IMPRESSION: 1. Prior postoperative changes ACDF C5-C7. Alignment is unchanged since 2021. 2. Mild central canal stenosis C3-C4 with a tiny shallow central protrusion an d slight effacement of ventral thecal sac. 3. Moderate bony foraminal narrowing worse at LEFT C5-C6 and LEFT C6-C7 unchan ged from previous. 4. Overall no significant changes compared to October 06, 2021
--- NOTE | 2022-06-14 10:27 | MR_ITS ---
WS: [email or web address] MRI HEAD WITH CONTRAST TECHNIQUE: Sagittal T1, T2 axial, T2 axial FLAIR, axial susceptibility weighted imaging, axial diffus ion weighted images, and coronal T2 images were obtained. Pre and post-T1 axial and post T1 coronal i mages. ADC and FSPGR images. CLINICAL INFORMATION: R51.9 - Headache, unspecified COMPARISON: CT February 06, 2022 FINDINGS: No evidence of restricted diffusion to suggest acute ischemia. Ventricular system and basal cisterns are patent. Mild patchy supratentorial periventricular and subcortical white matter changes nonspecif ic in a patient this age. Normal vascular flow voids at the skull base. No extra-axial fluid collecti ons. No evidence of mass or mass effect. Paranasal sinuses and mastoid air cells are well aerated. Normal optic chiasm and pituitary infundibulum. Temporal lobes and hippocampal formations are normal in appe arance. Normal cavernous sinuses and Meckel's cave. No abnormal gadolinium enhancement. Normal visualized dural venous sinuses. No other suspicious findi ngs. Impression MR/MR head wo/w con [id number] IMPRESSION: 1. No evidence of restricted diffusion to suggest acute ischemia. 2. Mild patchy supratentorial periventricular and subcortical white matter steven nges nonspecific in a patient this age but can be seen with hypertension, diabe k[place], collagen vascular disease, migraine headaches, and demyelinating disease. Recommend correlation with clinical history. 3. No significant parenchymal volume loss. 4. No abnormal gadolinium enhancement. 5. Normal corpus callosum. 6. No hemosiderin on susceptibly weighted images. 7. No other suspicious findings.
--- NOTE | 2022-06-14 11:00 | MR_ITS ---
WS: [email or web address] MRI LUMBAR SPINE NONCONTRAST TECHNIQUE: Sagittal T1, T2 and STIR imaging. Axial T1 and T2 imaging. CLINICAL INFORMATION: lumbar pain COMPARISON: MRI October 06, 2021 FINDINGS: Small disc protrusions in the thoracic spine at T5-T6 and T6-T7 with slight contact of the thoracic c ord worse at T6-T7 with mild central canal stenosis. Prior postoperative changes RIGHT L4-L5 hemilami nectomy. A few tiny disc protrusions in the lower thoracic spine at T10-T12. L1-L2: Mild disc bulging and osteophytic ridging. Mild facet arthropathy. Spinal canal and foramen ar e patent. L2-L3: No significant disc bulging. Mild facet arthropathy. Spinal canal and foramen are patent. L3-L4: Mild annular bulging. Mild facet arthropathy. Mild RIGHT and no LEFT foraminal narrowing. Mild facet arthropathy. L4-L5: Tiny RIGHT shallow pericentral protrusion. Slight narrowing of the RIGHT subarticular recess. Moderate facet arthropathy. Mild RIGHT and no significant LEFT bony foraminal narrowing. L5-S1: Disc osteophytic ridging with mild bilateral foraminal narrowing. Slight contact of the far ex iting L5 nerve roots bilaterally. Mild facet arthropathy. Spinal canal is patent. Slight contact of t he LEFT S1 nerve root is unchanged. Visualized pelvic bony structures: Normal. Paravertebral soft tissues: Normal. Incidental nabothian cysts in the cervix. RIGHT ovarian cyst measuring 1.7 cm. MR/MR lumbar spine wo con* [id number] IMPRESSION: 1. Overall no significant changes since October 06, 2021 2. Mild lumbar curve. No acute compression. No high-grade central canal steno sis. 3. Prior RIGHT hemilaminectomy L4-L5. 4. Shallow RIGHT pericentral disc bulging L4-L5 with slight narrowing of the R IGHT subarticular recess. Mild RIGHT L4-L5 bony foraminal narrowing. 5. Mild RIGHT L3-L4 bony foraminal narrowing with slight narrowing of the RIGH T L3-L4 subarticular recess. Moderate facet arthropathy at this level. This is unchanged from previous. 6. Disc osteophytic ridging L5-S1 contacts the far exiting L5 nerve roots bila terally LEFT greater than RIGHT. Slight contact of the LEFT S1 nerve root is un changed.
[2022-06-14] MEDS: gadobenate dimeglumine 20 mL vial IV (12:06)
== END 2022-06-14 10:19 | disposition home or self-care (01) ==
LOC: RAD 10:18
PROVIDERS: PCP Clinical Nurse Specialist Adult Health; Visit Provider Orthopaedic Surgery
DX: M51.26 Other intervertebral disc displacement, lumbar region (principal); M48.02 Spinal stenosis, cervical region; M54.9 Dorsalgia, unspecified; G62.9 Polyneuropathy, unspecified; R26.89 Other abnormalities of gait and mobility; R29.6 Repeated falls; R51.9 Headache, unspecified
CPT/HCPCS: 70553; 72141; 72148

== ENCOUNTER → 2022-11-08 11:26 | Outpatient (BNVA) | payer BC, SELFPAY | PROVIDERS: PCP Clinical Nurse Specialist Adult Health; Visit Provider Orthopaedic Surgery | DX: M43.02 Spondylolysis, cervical region (principal); Z98.1 Arthrodesis status | CPT/HCPCS: 72050 ==

== ENCOUNTER → 2022-11-09 12:47 | Outpatient (BNVA) | payer BC, SELFPAY | PROVIDERS: PCP Clinical Nurse Specialist Adult Health; Visit Provider Internal Medicine | DX: M54.12 Radiculopathy, cervical region (principal); M45.0 Ankylosing spondylitis of multiple sites in spine; M25.50 Pain in unspecified joint | CPT/HCPCS: 36415; 80053; 82306; 82310; 82550; 82784; 83516; 83970; 84100; 84439; 84443; 85025; 85651; 86140; 86160; 86162; 86200; 86235; 86255; 86376; 86431; 86480; 86704; 86803; 86812; 87340 ==

== ENCOUNTER 2022-11-22 13:09 | Outpatient (CLI) | payer BC, SELFPAY ==
--- NOTE | 2022-11-22 13:00 | XR_ITS ---
WS: [email or web address] SCREENING DEXA SCAN [employer] CLINICAL INFORMATION: pain COMPARISON: None. FINDINGS: The L1-L4 bone mineral density measures 1.370 g/cm2. This corresponds to a T score score of 1.6 and Z score of 0.9. Left femoral neck bone mineral density measures 1.275 g/cm2. This corresponds to a T score of 2.1 and Z score of 1.9. Right femoral neck bone mineral density measures 1.305 g/cm2. This corresponds to a T score 2.4of and Z score of 2.2. Mean femoral neck bone mineral density measures 1.290 g/cm2. This corresponds to a T score of 2.2 and Z score of 2.0. XR/XR DEXA axial skeleton* [id number] IMPRESSION: Normal bone mineralization lumbar spine. Normal bone mineralization femoral nec ks. Patient's FRAX calculated 10 year probability for major osteoporotic fracture i s 2.3 % and osteoporotic hip fracture is 0.0%.
== END 2022-11-22 13:10 | disposition home or self-care (01) ==
LOC: RAD 13:13
PROVIDERS: PCP Clinical Nurse Specialist Adult Health; Visit Provider Orthopaedic Surgery
DX: M43.02 Spondylolysis, cervical region (principal); Z98.1 Arthrodesis status
CPT/HCPCS: 36415; 77080; 80053; 82306; 82310; 82550; 82784; 83516; 83970; 84100; 84439; 84443; 85025; 85651; 86140; 86160; 86162; 86200; 86235; 86255; 86376; 86431; 86480; 86704; 86803; 86812; 87340

== ENCOUNTER → 2022-12-20 15:32 | Outpatient (BNVA) | payer BC, SELFPAY | PROVIDERS: PCP Clinical Nurse Specialist Adult Health; Visit Provider Internal Medicine | DX: M25.50 Pain in unspecified joint (principal); R07.89 Other chest pain; M54.12 Radiculopathy, cervical region | CPT/HCPCS: 73120; 73522; 73562 ==

== ENCOUNTER → 2022-12-26 08:59 | Outpatient (BNVA) | payer BC, SELFPAY | PROVIDERS: PCP Clinical Nurse Specialist Adult Health; Visit Provider Clinical Nurse Specialist Adult Health | DX: R35.0 Frequency of micturition (principal); N39.0 Urinary tract infection, site not specified; F41.1 Generalized anxiety disorder; F17.200 Nicotine dependence, unspecified, uncomplicated | CPT/HCPCS: 81000; 87086 ==

== ENCOUNTER → 2023-04-12 16:01 | Outpatient (BNVA) | payer BC, SELFPAY | PROVIDERS: PCP Clinical Nurse Specialist Adult Health; Visit Provider Specialist | DX: R29.90 Unspecified symptoms and signs involving the nervous system (principal); G43.019 Migraine without aura, intractable, without status migrainosus; G37.9 Demyelinating disease of central nervous system, unspecified; F41.1 Generalized anxiety disorder; R41.3 Other amnesia | CPT/HCPCS: 0346U; 36415 ==

== ENCOUNTER 2023-05-29 17:26 | Emergency (ER) | payer BC, SELFPAY ==
[2023-05-29 18:19] VITALS: BP 115/81; PULSE 90; RESP 18; TEMP 36.7; O2SAT 98; BMI 32.8
[2023-05-29 21:13] LABS: Basophils # 0.1 10^3/uL (0.0-0.1); Basophils % 1.1 %; Eosinophils # 0.2 10^3/uL (0.0-0.8); Eosinophils % 1.9 %; Hematocrit 44.2 % (36-47); Lymphocytes # 2.6 10^3/uL (0.8-4.8); Lymphocytes % 31.1 %; Mean Corpuscular HGB Conc 34.4 g/dL (30-55); Mean Corpuscular Hemoglobin 32.3 pg (27-33); Mean Platelet Volume 8.8 fL (7.4-10.4); Monocytes # 0.6 10^3/uL (0.2-0.9); Monocytes % 7.3 %; Neutrophils # 4.88 10^3/uL (1.8-7.7); Nucleated Red Blood Cells % 0 %; Platelet Count 316 10^3/cmm (157-399); Red Cell Distribution Width 13.1 % (12.1-15.1)
[2023-05-29 21:48] LABS: Alanine Aminotransferase 33 U/L (0-33); Albumin Level 5.1 g/dL (3.5-5.2); Alkaline Phosphatase 85 U/L (35-105); Anion Gap 12.6 (5-19); Aspartate Amino Transferase 24 U/L (0-32); Blood Urea Nitrogen 28 mg/dL (6-20); Calcium 9.7 mg/dL (8.5-10.5); Carbon Dioxide 28 mmol/L (22-29); Chloride 102 mmol/L (98-107); Globulin 2.7 g/dL (1.3-4.6); Glomerular Filtration Rate 67.1 mL/min (90-130); Glucose 112 mg/dL (65-115); Osmolality Calculated 294 mOsm/kg (285-295); Potassium 3.6 mmol/L (3.5-5.1); Sodium 139 mmol/L (136-145); Thyroid Stimulating Hormone 3.97 uIU/mL (0.27-4.20); Total Bilirubin 0.3 mg/dL (0.15-1.2); Total Protein 7.8 g/dL (6.6-8.7)
--- NOTE | 2023-05-29 23:23 | CTR_ITS ---
PROCEDURE INFORMATION: Exam: CT Head Without Contrast Exam date and time: 05/29/2023 11:37 PM Age: 48 years old Clinical indication: Alteration of consciousness; Transient alteration of awareness; Additional info: Headache, TECHNIQUE: Imaging protocol: Computed tomography of the head without contrast. Radiation optimization: All CT scans at this facility use at least one of these dose optimization techniques: automated exposure control; mA and/or kV adjustment per patient size (includes targeted exams where dose is matched to clinical indication); or iterative reconstruction. REPORTING DATA: Count of CT and Cardiac NM exams in prior 12 months: This patient has received 0 known CTs and 0 known cardiac nuclear medicine studies in the 12 months prior to the current study. COMPARISON: MR head wo/w con [id number] 06/14/2022 11:36 AM RADIATION DOSE METRICS: Total DLP (mGy-cm): 1132.9 FINDINGS: Brain: Normal. No hemorrhage. Unremarkable white matter. No mass effect. Cerebral ventricles: No ventriculomegaly. Paranasal sinuses: Visualized sinuses are unremarkable. No fluid levels. Mastoid air cells: Visualized mastoid air cells are well aerated. Bones/joints: Unremarkable. No acute fracture. Soft tissues: Unremarkable. CT/CT head wo con* [id number] IMPRESSION: No acute intracranial abnormality.
--- NOTE | 2023-05-29 23:26 | W.ED.GENADLT ---
HPI - General Adult General: Chief complaint: Headache Stated complaint: sent from [facility], tired,dizzy,numbess Time Seen by Provider: 05/29/23 22:20 History of Present Illness: 48-year-old female comes in today for persistent headache since Monday. Patient has also had some diarrhea and some abnormal neurologic symptoms. Patient was recommended to be seen in the ER for these abnormal neurologic symptoms whenever she exhibits them per her pain specialist. Patient has a history of lupus, chronic pain disease, YOANA, morbid obesity, intervertebral disc disease. Patient states the symptoms he has been exhibiting was episodes when she will zone out as described by her . Patient is just reporting more her says. Patient also states about 2 weeks ago she had an episode where the left side of her face was drooping which recovered within hours. Associated symptoms: Reports headache(s) and nausea; Deny chest pain, dyspnea or rash Review of Systems General: Reports: 10 or more systems reviewed and unremarkable except in HPI and below Const: Denies: fever(s) ENMT: Denies: nasal discharge Card: Denies: chest pain Resp: Denies: dyspnea GI: Reports: nausea and diarrhea : Denies: difficulty voiding Musc: Denies: neck pain or back pain Skin/Breast: Denies: rash Neuro: Reports: headache(s) PFSH ED PFSH: Medical History Balance disorder Carpal tunnel syndrome, bilateral upper limbs Cervical disc disease with myelopathy Cervical disc disorder with myelopathy of mid-cervical region small disc protrucion at C3, C5, and C6 (MRI of Cervical and lumbar spine 2017) Displacement of lumbar disc with radiculopathy Facet arthritis, degenerative, lumbar spine Frequent falls Generalized anxiety disorder Headache Insomnia Intervertebral disc disorder with radiculopathy of lumbosacral region Shaved vertebrae in lumbar and spinal fusion in cervical spine(2020- Dr. King) care home (current) use of opiate analgesic Major depression -failed lamictal, wellbutrin, trazodone, effexor and sertraline Morbid obesity Neuropathy Obstructive sleep apnea CPAP [id number], using nightly for tx of YOANA Pain management contract signed Restless leg Smoker Stenosis of cervical spine with myelopathy Surgical History History of delivery History of cholecystectomy History of foot surgery bilateral surgery Status post cervical spinal fusion Family History Father Cancer Mother Cancer Clotting disorder Social History Smoking and tobacco status: current every day smoker cigarettes Packs smoked per day: 0.5 Quit status (tobacco): considering quitting Alcohol intake: current Alcohol intake frequency: few times a week Alcohol type: beer Substance/Drug Use: never Household members: spouse Marital status: Current occupational status: unemployed Physical Exam Const: COMMON NORMALS: alert HENMT: COMMON NORMALS: normocephalic and Normal external nose present HEAD & SCALP: normocephalic NOSE: Normal external nose present MOUTH: Normal oral and palatal mucosa present Neck/C-Spine: COMMON NORMALS: no meningeal signs Resp: COMMON NORMALS: normal respiratory effort and clear to auscultation bilaterally AUSCULTATION: clear to auscultation bilaterally Cardio: COMMON NORMALS: regular rate and regular rhythm RATE: regular rate RHYTHM: regular rhythm GI: COMMON NORMALS: Soft to palpation and non-tender PALPATION: Yes Soft to palpation Extremity: COMMON NORMALS: normal to inspection and full ROM Neuro: SENSORIUM/ORIENTATION: Yes alert MENINGEAL SIGNS: Yes no meningeal signs Skin: COMMON NORMALS: no rashes or lesions noted and turgor normal GENERAL SKIN EXAM: no rashes or lesions noted and turgor normal Course Vital Signs: Vital signs: Vital Signs Temperature 98.1 F 05/29/23 18:19 Pulse Rate 90 05/29/23 18:19 Respiratory Rate 18 05/29/23 18:19 Blood Pressure 127/89 05/30/23 00:20 Pulse Oximetry 98 05/29/23 18:19 Oxygen Delivery Me thod Room Air 05/29/23 18:19 [facility] - General Adult Medical Decision Making Patient comes in today for what she describes as headache and abnormal neurologic symptoms. On exam patient has no focal neural deficits. Pupils are equal and reactive. Patient moves all extremities well. Vital signs are normal. Differential diagnosis includes not limited to absence seizures, TIA, Post's palsy, migraine syndrome, viral syndrome, dehydration. Laboratory values were unremarkable. CT of the head showed no new acute abnormalities. Patient was treated for a migraine with a headache cocktail of ketorolac 15, dexamethasone 4, Reglan 10, and diphenhydramine 12.5. Patient had improvement of headache and was discharged home with recommendations for follow-up treatment. Patient reported understanding agreed to plan. Lab Data 05/29/23 21:04 05/29/23 21:[address] 05/29/23: IMPRESSION: No acute intracranial abnormality. Laboratory Results WBC 8.40 10^3/uL (3.29-11.43) 05/29/23 21:04 RBC 4.70 10^6/uL (3.85-5.65) 05/29/23 21:04 Hgb 15.20 g/dL (11.27-16.99) 05/29/23 21:04 Hct 44.2 % (36-47) 05/29/23 21:04 MCV 94.0 fl (85-98) 05/29/23 21:04 MCH 32.3 pg (27-33) 05/29/23 21:04 MCHC 34.4 g/dL (30-55) 05/29/23 21:04 RDW 13.1 % (12.1-15.1) 05/29/23 21:04 Plt Count 316 10^3/cmm (157-399) 05/29/23 21:04 MPV 8.8 fL (7.4-10.4) 05/29/23 21:04 Neut % (Auto) 58.0 % 05/29/23 21: Lymph % (Auto) 31.1 % 05/29/23 21:04 Gage % (Auto) 7.3 % 05/29/23 21:04 Eos % (Auto) 1.9 % 05/29/23 21:04 Baso % (Auto) 1.1 % 05/29/23 21:04 Neut # (Auto) 4.88 10^3/uL (1.8-7.7) 05/29/23 21:04 Lymph # (Auto) 2.6 10^3/uL (0.8-4.8) 05/29/23 21:04 Gage # (Auto) 0.6 10^3/uL (0.2-0.9) 05/29/23 21:04 Eos # (Auto) 0.2 10^3/uL (0.0-0.8) 05/29/23 21:04 Baso # (Auto) 0.1 10^3/uL (0.0-0.1) 05/29/23 21:04 Nucleated RBC % (auto) 0 % 05/29/23 21:04 Nucleated RBCs # 0.0 /100WBC 05/29/23 21:04 Sodium 139 mmol/L (136-145) 05/29/23 21:04 Potassium 3.6 mmol/L (3.5-5.1) 05/29/23 21:04 Chloride 102 mmol/L (98-107) 05/29/23 21:04 Carbon Dioxide 28 mmol/L (22-29) 05/29/23 21:04 Anion Gap 12.6 (5-19) 05/29/23 21:04 BUN 28 mg/dL (6-20) H 05/29/23 21:04 Creatinine 0.9 mg/dL (0.5-0.9) 05/29/23 21:04 GFR Calculation 67.1 mL/min (90-130) L 05/29/23 21:04 Glucose 112 mg/dL (65-115) 05/29/23 21:04 Calculated Osmolality 294 mOsm/kg (285-295) 05/29/23 21:04 Calcium 9.7 mg/dL (8.5-10.5) 05/29/23 21:04 Total Bilirubin 0.3 mg/dL (0.15-1.2) 05/29/23 21:04 AST 24 U/L (0-32) 05/29/23 21:04 ALT 33 U/L (0-33) 05/29/23 21:04 Alkaline Phosphatase 85 U/L (35-105) 05/29/23 21:04 Total Protein 7.8 g/dL (6.6-8.7) 05/29/23 21:04 Albumin 5.1 g/dL (3.5-5.2) 05/29/23 21:04 Globulin 2.7 g/dL (1.3-4.6) 05/29/23 21:04 TSH 3.97 uIU/mL (0.27-4.20) 05/29/23 21:04 Discharge Plan Discharge Patient Disposition: Home Clinical Impression: Migraine Qualifiers: Migraine type: unspecified Status migrainosus presence: without status migrainosus Intractability: not intractable Qualified Code(s): G43.909 - Migraine, unspecified, not intractable, without status migrainosus Condition: Stable Prescriptions: No Action naproxen sodium [Aleve] 220 mg capsule 220 mg PO Q8H PRN nitroglycerin 0.4 mg tablet, sublingual 0.4 mg sublingual Q5M PRN (Reason: chest pain) Qty: 20 0RF Rx Instructions: do not exceed 3 doses per episode doxycycline monohydrate 100 mg capsule 100 mg PO BID Qty: 14 0RF benzonatate 100 mg capsule 100 mg PO TID PRN (Reason: cough) Qty: 45 0RF varenicline 1 mg tablet 1 mg PO BID 30 Days Qty: 60 3RF clonazepam 2 mg tablet 2 mg PO DAILY PRN (Reason: Anxiety) Qty: 30 2RF methylprednisolone acetate [Depo-Medrol] 40 mg/mL suspension 40 mg Infiltration ONCE Qty: 1 0RF duloxetine 60 mg capsule,delayed release(DR/EC) 60 mg PO DAILY Qty: 90 3RF tramadol 50 mg tablet 50 mg PO BID PRN (Reason: pain) Qty: 45 0RF sumatriptan succinate 100 mg tablet 100 mg PO Q2H PRN (Reason: migraine headache) Qty: 60 5RF Rx Instructions: do not exceed 2 doses per 24 hrs (DME) auto cpap See Rx Instructions .Route .MEDSUPPLY Qty: 1 0RF Rx Instructions: [id number], using nightly for tx of YOANA (DME) AUTO-TITRATING CPAP 6-14CM See Rx Instructions .Route .MEDSUPPLY Qty: 1 0RF Rx Instructions: As directed omeprazole 20 mg tablet,delayed release (DR/EC) 20 mg PO DAILY Qty: 90 3RF isosorbide mononitrate 30 mg tablet extended release 24 hr 30 mg PO DAILY Qty: 90 3RF valacyclovir 1 gram tablet 1,000 mg PO DAILY Qty: 20 0RF Rx Instructions: take 2 tabs BID X 1 day. may repeat X 1 day only loratadine [Allergy Relief (loratadine)] 10 mg tablet 10 mg PO DAILY@2000 Qty: 90 3RF hydroxychloroquine 200 mg tablet 200 mg PO BID Qty: 60 3RF furosemide 40 mg tablet 40 mg PO DAILY PRN (Reason: edema) Qty: 90 3RF ropinirole 2 mg tablet 2 mg PO DAILY@2000 Qty: 90 0RF gabapentin 300 mg capsule 300 mg PO TID Qty: 90 0RF calcium carbonate 500 mg calcium (1,250 mg) Tablet,Chewable 500 mg PO TID PRN (Reason: Heartburn) Discharge Orders: Discharge ED (Routine); Ordered 05/30/23 Ordered By: Je Peterson Referrals: Gordon Mclaughlin NP [Primary Care Provider] - Discharge Diet: Usual diet Discharge Activity: Increase activity as tolerated Patient Instructions: Migraine Headache (ED) Activity Restrictions/Additional Instructions: Continue with routine care. Follow-up with primary care or neurologist for further evaluation and treatment of migraines. Return to ED for new concerns. Coding Level of Care Code ED Modeling Instructor for Douglas Cadena
[2023-05-30] MEDS: diphenhydrAMINE 50 mg/mL SDV 1mL 12.5 MG IVP (00:08)
[2023-05-30] MEDS: ketorolac 30 mg/mL INJ 15 MG IVP (00:09)
[2023-05-30] MEDS: sodium chloride 0.9% 500 ML 999 ML IV (00:11)
[2023-05-30] MEDS: dexamethasone 4 mg/mL INJ 8 MG IVP (00:11)
[2023-05-30] MEDS: metoclopramide 5 mg/mL SDV 2 mL 10 MG IVP (00:12)
[2023-05-30 00:20] VITALS: BP 127/89
[2023-05-30 00:30] LABS: Urine Color Dark Yellow (Yellow)
[2023-05-30 00:31] LABS: Add Urine Culture? No; Add Urine Microscopic? YES; Bacteria Urine 1+ /hpf; Bilirubin Urine Neg (Negative); Blood Urine 2+ (Negative); Glucose Urine UA Norm (Normal); Ketones Urine Negative (Negative); Leukocyte Esterase Urine Negative (Negative); Mucus Urine 3+ /hpf; Nitrate Urine Negative (Negative); Protein Urine Neg (Negative); Urine Appearance Clear (CLEAR); Urobilinogen Urine Neg (Negative); WBC Urine 0-4 /hpf (0-5); pH Urine 5 (5-7)
[2023-05-30 01:18] VITALS: BP 113/77; PULSE 66; RESP 15; O2SAT 96
== END 2023-05-30 01:21 | disposition home or self-care (01) ==
PROVIDERS: Emergency Medicine; Emergency Provider Nurse Practitioner Family; PCP Clinical Nurse Specialist Adult Health
DX: G43.909 Migraine, unspecified, not intractable, without status migrainosus (principal); F17.210 Nicotine dependence, cigarettes, uncomplicated
CPT/HCPCS: 36415; 70450; 80053; 81001; 84443; 85025; 96374; 96375; 99285; J1100; J1200; J1885; J2765; J7040

== ENCOUNTER → 2023-06-08 12:02 | Outpatient (BNVA) | payer BC, SELFPAY | PROVIDERS: PCP Clinical Nurse Specialist Adult Health; Visit Provider Clinical Nurse Specialist Adult Health | DX: R55 Syncope and collapse (principal); R19.7 Diarrhea, unspecified; G99.2 Myelopathy in diseases classified elsewhere; M48.02 Spinal stenosis, cervical region | CPT/HCPCS: 80053; 83036; 83630; 85025; 85651; 86140; 87045; 87177; 87209; 87324; 87427; 87449 ==

== ENCOUNTER 2023-08-30 13:16 | Outpatient (CLI) | payer BC, SELFPAY ==
--- NOTE | 2023-08-30 13:25 | USCV_ITS ---
Areils Corado Age: 48 Gender: F : 1975 Exam Date: 08/30/2023 13:52 Ordering Phys: Gordon Mclaughlin NP Technologist: SARINA Exam Location: [facility] [place] Indication: SYNCOPE Risk Factors: Previous Vascular Surgery: Right Brachial BP: / Left Brachial BP: / Right Left Velocity (cm/s) Spectral Plaque Velocity (cm/s) Spectral Plaque Syst/Diast Broadening Syst/Diast Broadening 94.80/ 28.70 Prox CCA 80.50 / 28.00 82.70/ 23.20 Mid CCA 89.30 / 33.50 62.30/ 23.80 Distal CCA 79.10 / 32.10 70.60/ 23.20 Prox ICA 59.50 / 19.80 65.10/ 29.80 Mid ICA 82.70 / 32.00 68.80/ 32.40 Distal ICA 65.10 / 30.90 87.00 ECA 71.70 0.74 ICA/CCA 0.93 Antegrade Vertebral Antegrade 38.50/ 14.30 cm/s 42.70/ 15.80 cm/s Tri Subclavian Tri 147.2 105.8 0 0 CONCLUSIONS Right ICA stenosis <50%. Left ICA stenosis <50%. Normal antegrade Doppler flow noted in the right vertebral artery. Normal antegrade Doppler flow noted in the left vertebral artery. Navjot Espinoza MD (Electronically Signed) Final Date: 31 August 2023 09:36 S
== END 2023-08-30 13:17 | disposition home or self-care (01) ==
LOC: RAD 13:16
PROVIDERS: PCP Clinical Nurse Specialist Adult Health; Visit Provider Clinical Nurse Specialist Adult Health
DX: R55 Syncope and collapse (principal); I65.23 Occlusion and stenosis of bilateral carotid arteries
CPT/HCPCS: 93880

== ENCOUNTER → 2023-12-21 15:21 | Outpatient (BNVA) | payer OTHER, SELFPAY | PROVIDERS: PCP Clinical Nurse Specialist Adult Health; Visit Provider Internal Medicine Cardiovascular Disease | DX: R07.9 Chest pain, unspecified (principal) | CPT/HCPCS: 93005 ==

== ENCOUNTER → 2024-01-16 13:44 | Outpatient (BNVA) | payer OTHER, SELFPAY | PROVIDERS: PCP Clinical Nurse Specialist Adult Health; Visit Provider Internal Medicine Rheumatology | DX: Z79.899 Other long term (current) drug therapy (principal) | CPT/HCPCS: 80076; 82565; 85025; 86140 ==

== ENCOUNTER → 2024-08-01 09:07 | Outpatient (BNVA) | payer OTHER, SELFPAY | PROVIDERS: PCP Clinical Nurse Specialist Adult Health; Visit Provider Internal Medicine Rheumatology | DX: Z79.899 Other long term (current) drug therapy (principal) | CPT/HCPCS: 80076; 82565; 85025; 85651; 86140 ==

== ENCOUNTER → 2024-09-10 14:13 | Outpatient (BNVA) | payer OTHER, SELFPAY | PROVIDERS: PCP Clinical Nurse Specialist Adult Health; Visit Provider Psychiatry & Neurology Psychiatry | DX: F41.1 Generalized anxiety disorder (principal) | CPT/HCPCS: 80061; 83036 ==

== ENCOUNTER 2024-10-25 10:15 | Outpatient (CLI) | payer OTHER, SELFPAY ==
[2024-09-18 10:35] VITALS: BP 128/86; BMI 33.1
--- NOTE | 2024-10-25 10:40 | MM_ITS ---
WS: [id number] BILATERAL SCREENING DIGITAL TOMOSYNTHESIS MAMMOGRAM WITH CAD HISTORY: Z12.39 - Encounter for other screening for malignant neop... COMPARISON: 12/06/2022 Bilateral CC and MLO views with tomosynthesis and synthetic mammography submitted. Computer aided det ection analyzed. Breast composition: The breasts are extremely dense, which lowers the sensitivity of mammography. No suspicious masses, microcalcifications or architectural distortion. Dense fibroglandular breast paren chyma with scattered asymmetries. Similar to the prior study from 12/06/2022. No distortion. No suspici ous grouping of calcifications. MM/MM scr BI tomosynthesis [id number] IMPRESSION: BI-RADS: 2 - Benign FOLLOW UP: 1 Year Follow-up
== END 2024-10-25 10:16 | disposition home or self-care (01) ==
PROVIDERS: PCP Nurse Practitioner Family; Visit Provider Nurse Practitioner Family
DX: Z12.31 Encounter for screening mammogram for malignant neoplasm of breast (principal); R92.343 Mammographic extreme density, bilateral breasts; N64.89 Other specified disorders of breast
CPT/HCPCS: 77063; 77067

== ENCOUNTER → 2024-11-14 13:58 | Outpatient (BNVA) | payer OTHER, SELFPAY ==
[2024-09-18 10:35] VITALS: BP 128/86; BMI 33.1
== END ==
PROVIDERS: PCP Nurse Practitioner Family; Visit Provider Internal Medicine Rheumatology
DX: Z79.899 Other long term (current) drug therapy (principal); M06.00 Rheumatoid arthritis without rheumatoid factor, unspecified site
CPT/HCPCS: 80076; 82565; 83520; 85025; 85651

== ENCOUNTER → 2025-01-13 15:05 | Outpatient (BNVA) | payer MEDICAID, SELFPAY ==
[2025-01-13 14:44] VITALS: BP 128/86; BMI 33.1
== END ==
PROVIDERS: PCP Nurse Practitioner Family; Visit Provider Internal Medicine Rheumatology
DX: Z79.899 Other long term (current) drug therapy (principal)
CPT/HCPCS: 36415; 80076; 82565

== ENCOUNTER → 2025-01-22 10:25 | Outpatient (BNVA) | payer MEDICAID, SELFPAY ==
[2025-01-13 14:44] VITALS: BP 128/86; BMI 33.1
== END ==
PROVIDERS: PCP Nurse Practitioner Family; Visit Provider Specialist
DX: G43.711 Chronic migraine without aura, intractable, with status migrainosus (principal); R29.90 Unspecified symptoms and signs involving the nervous system
CPT/HCPCS: 99213

== ENCOUNTER → 2025-03-06 15:40 | Outpatient (BNVA) | payer MEDICAID, SELFPAY ==
[2025-01-13 14:44] VITALS: BP 128/86; BMI 33.1
== END ==
PROVIDERS: PCP Nurse Practitioner Family; Visit Provider Family Medicine
DX: R30.9 Painful micturition, unspecified (principal); R32 Unspecified urinary incontinence; R30.0 Dysuria
CPT/HCPCS: 81000; 87086

== ENCOUNTER → 2025-03-13 12:00 | Outpatient (BNVA) | payer MEDICAID, SELFPAY ==
[2025-01-13 14:44] VITALS: BP 128/86; BMI 33.1
== END ==
PROVIDERS: PCP Nurse Practitioner Family; Visit Provider Nurse Practitioner Family
DX: E66.01 Morbid (severe) obesity due to excess calories (principal); Z79.899 Other long term (current) drug therapy
CPT/HCPCS: 80053; 80061; 84439; 84443; 84480; 85025

== ENCOUNTER 2025-04-10 12:20 | Outpatient (CLI) | payer MEDICAID, SELFPAY ==
[2025-01-13 14:44] VITALS: BP 128/86; BMI 33.1
--- NOTE | 2025-04-10 13:00 | MR_ITS ---
WS: [id number] MRI HEAD WITHOUT CONTRAST TECHNIQUE: Sagittal T1, T2 axial, T2 axial FLAIR, axial and coronal T1 images, axial susceptibility weighted imaging, axial diffusion weighted images, and coronal T2 images were obtained. CLINICAL INFORMATION: G37.9 - Demyelinating disease of central nervous system, ... COMPARISON: MRI 2021 FINDINGS: No evidence of restricted diffusion to suggest acute ischemia. Ventricular system and basal cisterns are patent. Mild patchy supratentorial periventricular and subcortical white matter changes nonspecific in a patient this age. Normal vascular flow voids at the skull base. No hemosiderin on the susceptibility weighted images. No extra-axial fluid collections. No evidence of mass or mass effect. Paranasal sinuses and mastoid air cells are well aerated. Normal optic chiasm and pituitary infundibulum. Temporal lobes and hippocampal formations are normal in appearance. MR/MR head wo con* [id number] IMPRESSION: 1. Patchy supratentorial white matter changes nonspecific but compatible with history of demyelinating disease. 2. No significant progression compared to previous. 3. No significant parenchymal volume loss. 4. No significant T1 hypointense lesion load. 5. Gadolinium not administered. 6. No hemosiderin.
--- NOTE | 2025-04-10 13:42 | USR_ITS ---
PROCEDURE INFORMATION: Exam: US Abdomen; Limited Exam date and time: 04/10/2025 2:09 PM Age: 50 years old Clinical indication: Abnormal findings; Abnormal lab test; Elevated liver enzymes; Additional info: Elevated liver enzymes, PT had mri labs now TECHNIQUE: Imaging protocol: Real time ultrasound of the abdomen with image documentation. Limited exam focused on the region of clinical interest. COMPARISON: CT abdomen pelvis w con* [id number] 12/20/2021 10:27 AM FINDINGS: Normal liver. No gallstones. No pericholecystic fluid. No gallbladder wall thickening. No biliary dilatation. No right-sided hydronephrosis. The visualized pancreas IVC and aorta appear normal. US/US liver [id number] IMPRESSION: No acute findings.
[2025-04-10 14:37] LABS: Hepatitis A Antibody IgM Non-Reactive (Nonreactive); Hepatitis B Surface Antigen Non-Reactive (Nonreactive)
== END 2025-04-10 12:21 | disposition home or self-care (01) ==
LOC: RAD 12:21
PROVIDERS: PCP Nurse Practitioner Family; Visit Provider Specialist
DX: R74.8 Abnormal levels of other serum enzymes (principal); G37.9 Demyelinating disease of central nervous system, unspecified; R90.82 White matter disease, unspecified
CPT/HCPCS: 36415; 70551; 76705; 86705; 86706; 86709; 86803; 87340

== ENCOUNTER → 2025-04-24 15:26 | Outpatient (BNVA) | payer MEDICAID, SELFPAY ==
[2025-01-13 14:44] VITALS: BP 128/86; BMI 33.1
== END ==
PROVIDERS: PCP Nurse Practitioner Family; Visit Provider Obstetrics & Gynecology
DX: Z12.4 Encounter for screening for malignant neoplasm of cervix (principal)
CPT/HCPCS: 87624

== ENCOUNTER → 2025-04-28 10:33 | Outpatient (BNVA) | payer MEDICAID, SELFPAY ==
[2025-01-13 14:44] VITALS: BP 128/86; BMI 33.1
== END ==
PROVIDERS: PCP Nurse Practitioner Family; Visit Provider Obstetrics & Gynecology
DX: N83.209 Unspecified ovarian cyst, unspecified side (principal); Z12.4 Encounter for screening for malignant neoplasm of cervix
CPT/HCPCS: 76830

== ENCOUNTER → 2025-05-08 15:56 | Outpatient (BNVA) | payer MEDICAID, SELFPAY ==
[2025-01-13 14:44] VITALS: BP 128/86; BMI 33.1
== END ==
PROVIDERS: PCP Nurse Practitioner Family; Visit Provider Internal Medicine Rheumatology
DX: Z79.899 Other long term (current) drug therapy (principal)
CPT/HCPCS: 36415; 80076; 82306; 82657; 86480

== ENCOUNTER → 2025-06-12 14:22 | Outpatient (BNVA) | payer MEDICAID, SELFPAY ==
[2025-01-13 14:44] VITALS: BP 128/86; BMI 33.1
== END ==
PROVIDERS: PCP Nurse Practitioner Family; Visit Provider Internal Medicine Rheumatology
DX: Z79.899 Other long term (current) drug therapy (principal)
CPT/HCPCS: 80076; 82565; 85651; 86140

== ENCOUNTER → 2025-09-17 09:37 | Outpatient (BNVA) | payer MEDICAID, SELFPAY ==
[2025-01-13 14:44] VITALS: BP 128/86; BMI 33.1
== END ==
PROVIDERS: PCP Nurse Practitioner Family; Visit Provider Nurse Practitioner Family
DX: Z79.899 Other long term (current) drug therapy (principal)
CPT/HCPCS: 80053; 80061; 84443; 85025

== ENCOUNTER → 2025-09-18 14:01 | Outpatient (BNVA) | payer MEDICAID, SELFPAY ==
[2025-01-13 14:44] VITALS: BP 128/86; BMI 33.1
== END ==
PROVIDERS: PCP Nurse Practitioner Family; Visit Provider Internal Medicine Rheumatology
DX: M35.9 Systemic involvement of connective tissue, unspecified (principal); R76.89 Other specified abnormal immunological findings in serum; Z79.899 Other long term (current) drug therapy; Z71.85 Encounter for immunization safety counseling; M32.9 Systemic lupus erythematosus, unspecified; M75.101 Unspecified rotator cuff tear or rupture of right shoulder, not specified as traumatic; M70.61 Trochanteric bursitis, right hip
CPT/HCPCS: 99214